=== PATIENT | female | born 1950 | race Caucasian/White ===

== ENCOUNTER 2021-04-29 20:57 | Inpatient (IN) ==
[2021-04-29 22:00] LABS: Basophils # (auto) 0.08 K/uL (0-0.2); Basophils % (auto) 0.7 %; Eosinophils # (auto) 0.06 K/uL (0-0.5); Eosinophils % (auto) 0.5 %; Hematocrit (blood only) 32.1 % (37-47); Hemoglobin 10.2 g/dL (12.0-16.0); Immature Granulocytes # (auto) 0.02 K/uL (0.00-0.02); Immature Granulocytes % (auto) 0.2 %; Lymphocytes # (auto) 2.22 K/uL (1.2-3.4); Lymphocytes % (auto) 18.9 %; Mean Corpuscular Hemoglobin 28.1 pg (25-34); Mean Corpuscular Hgb Conc 31.8 g/dL (32-36); Mean Corpuscular Volume 88.4 fL (80-100); Mean Platelet Volume 12.5 fL (7.4-10.4); Monocytes # (auto) 0.33 K/uL (0.11-0.59); Monocytes % (auto) 2.8 %; Neutrophils # (auto) 9.02 K/uL (1.4-6.5); Neutrophils % (auto) 76.9 %; Platelet Count 357 K/uL (130-400); RDW Coefficient of Variation 14.9 % (11.5-14.5); RDW Standard Deviation 48.2 fL (36.4-46.3); Red Blood Count 3.63 M/uL (4.2-5.4); White Blood Count 11.73 K/uL (4.8-10.8)
[2021-04-29] MEDS ORDERED: SODIUM CHLORIDE 0.9% 1000ML 1,000 ML IV SCH (22:00)
--- NOTE | 2021-04-29 22:00 | XRay Report ---
XR chest 1V portable INDICATION: MN ^SEPSIS . TECHNIQUE: Single frontal radiograph of the chest was obtained. Comparison: Comparison is made to chest one view 04/02/2021 FINDINGS: No lines and tubes are seen. Calcified aortic knob is seen. There is faint airspace opacity in the ri ght lower lung. Linear density in the left lower lung is favored to represent atelectasis. No evidenc e of pleural effusion or pneumothorax. IMPRESSION: Faint right lower lobe opacity may represent atelectasis, aspiration, and/or pneumonia. ACT 112: Negative or not required by law. Electronically signed by: Anderson Beckman M.D. 04/29/2021 9:58 PM
[2021-04-29 22:09] LABS: Albumin Level 2.4 gm/dl (3.4-5.0); BUN Creatinine Ratio 23.4 (10-20); Calcium 8.7 mg/dl (8.5-10.1); Est GFR (African American) 15.7 ml/min; Est GFR (Non-African American) 13.5 ml/min; Magnesium 1.9 mg/dl (1.8-2.4); Potassium 4.4 mmol/L (3.5-5.1)
[2021-04-29 22:14] LABS: Albumin Globulin Ratio 0.6 (0.9-2); Bilirubin,Total 0.3 mg/dl (0.2-1); Globulin 3.9 gm/dl (2.5-4.0); Total Protein 6.3 gm/dl (6.4-8.2); Troponin I 0.039 ng/ml (0-0.045)
[2021-04-29] MEDS ORDERED: SODIUM CHLORIDE 0.9% 1000ML 1,000 ML IV ONE (22:35)
[2021-04-29] MEDS ORDERED: PIPERACILLIN/TAZOBACTAM 4.5 GM/120 ML BAG IV ONE (22:36)
[2021-04-29] MEDS ORDERED: PIPERACILL/TAZOBAC CONSULT ACTIVE PRN (22:36)
--- NOTE | 2021-04-29 23:21 | Emergency Department Note ---
History of Present Illness General Chief complaint: Weakness Stated complaint: lethergy, COVID + Time Seen by Provider: 04/29/21 21:38 Source: patient, EMS, RN notes reviewed and old records reviewed Mode of arrival: ambulatory Limitations: no limitations History of Present Illness Maximum Pain Intensity: 3 This patient is 70-year-old female who apparently had Covid 3 weeks ago and according EMS was discharged a week ago although I do not see a record here. Her daughter has been a menagerie caretaker and she has not had anything to eat or drink for several days. She may be having diarrhea as well she feels dizzy no chest pain or shortness of breath no fever chills no cough no fall or trauma no dysuria hematuria no rash. She has had a stroke in the past but no new numbness or weakness. Home Medications Medication Instructions Recorded Confirmed Type amlodipine 2.5 mg tablet 2.5 mg PO BID 01/12/21 04/29/21 History atorvastatin 40 mg tablet 40 mg PO HS 01/12/21 04/29/21 History clopidogrel 75 mg tablet 75 mg PO QAM 01/12/21 04/29/21 History hydralazine 50 mg tablet 50 mg PO TID 01/12/21 04/29/21 History metformin 500 mg tablet,extended 1,000 mg PO QAM 01/12/21 04/29/21 History release 24 hr metoprolol tartrate 50 mg tablet 50 mg PO BID 01/12/21 04/29/21 History lisinopril 20 mg tablet 20 mg PO BID 02/11/21 04/29/21 History hydrocodone 5 mg-acetaminophen 325 1 tab PO Q4H PRN #14 tab 02/16/21 04/29/21 Rx mg tablet ondansetron HCl 8 mg tablet 8 mg PO Q8H PRN #10 tab 02/16/21 04/29/21 Rx gabapentin 100 mg capsule 100 mg PO TID 04/29/21 04/29/21 History Allergies Allergy/AdvReac Type Severity Reaction Status Date / Time No Known Allergies Allergy Mild Verified 04/29/21 23:21 Past Med/Surg History Medical History (Updated 04/30/21 @ 02:32 by Phillip Hoffman MD) Diabetes mellitus, type 2 NIDDM History of gastric ulcer HTN (hypertension) Hyperlipidemia On anticoagulant therapy on plavix daily Stroke 2015--d/t high bp/blood clot--no deficits--follows with PCP only, no neurologist--reason for plavix Surgical History History of gynecologic surgery "infection on uterus" per pt had to clean out History of tooth extraction all top teeth Hx of oral surgery Removal of Exposed Bone of Anterior Mandible from recent facial Infection; Removal of Teeth #,20, 23, 24, 25, 26, 27 and 28 primary closure from advancement flap to obtain closure over exposed bone. Dr. Carrasco 02/16/21 Family History Other Family history non-contributory No family history of adverse response to anesthesia Social History Smoking Status: Never smoker Tobacco Type: Cigarettes packs per day: 1; Years Smoked: 20; Second Hand Exposure: No; Hx Alcohol Use: No Hx Substance Use: No Preferred Language: Citizen Of [place] Communication Ability: Effective Visual Impairment: Partially Limited Lead Software Qa Engineer Required: No Beliefs That Will Affect Care: None marital status: Current Living Situation: Spouse and Family Current Living Situation Comment: Lives with and daughter current occupational status: retired How many Children do You have: 5 Feels Safe at Home: Yes during the past year weight has: remained stable Assistive Devices: Glasses Review of Systems A total of 10 systems reviewed and were otherwise negative Physical Exam Vital Signs Vital Signs - 24 hr 04/29/21 21:07 04/29/21 21:46 04/29/21 23:05 Temperature 36.5 C 36.7 C Temperature Source Oral Oral Pulse Rate 96 H 59 L Pulse Rate [Carotid] 66 Pulse Rhythm Regular Pulse Rhythm [Carotid] Regular Pulse Strength Normal Pulse Strength [Carotid] Normal Respiratory Rate 22 20 20 Respiratory Effort / Characteristics Non-Labored Non-Labored Non-Labored Respiratory Depth Normal Normal Respiratory Pattern Regular Blood Pressure 78/43 L Blood Pressure [Left Arm] 84/67 L Blood Pressure Mean 54 Blood Pressure Mean [Left Arm] 72 Blood Pressure Position Sitting Blood Pressure Position [Left Arm] Lying Pulse Oximetry 99 99 100 Oxygen Delivery Method Nasal Cannula Nasal Cannula Nasal Cannula Oxygen Flow Rate 2 2 2 Sepsis Recent Fever Within 48 Hours No Sepsis New/Unexplained Change in Mental Status No Sepsis Action Taken by Nursing No Action Required 04/30/21:41 04/30/21 01:50 04/30/21 02:15 Temperature Temperature Source Pulse Rate Pulse Rate [Carotid] 84 59 L 59 L Pulse Rhythm Pulse Rhythm [Carotid] Regular Regular Pulse Strength Pulse Strength [Carotid] Normal Normal Respiratory Rate 19 20 20 Respiratory Effort / Characteristics Non-Labored Spontaneous Respiratory Depth Normal Respiratory Pattern Blood Pressure Blood Pressure [Left Arm] 81/47 L 92/52 L 76/50 L Blood Pressure Mean Blood Pressure Mean [Left Arm] 58 65 58 Blood Pressure Position Blood Pressure Position [Left Arm] Lying Lying Pulse Oximetry 97 100 100 Oxygen Delivery Method Room Air Nasal Cannula Oxygen Flow Rate 2 Sepsis Recent Fever Within 48 Hours Sepsis New/Unexplained Change in Mental Status Sepsis Action Taken by Nursing General: Well developed well nourished female who appears in no acute distress, breathing comfortably on room air. Normal baseline speech for her HEENT: Normal cephalic atraumatic. Pupils are equal round and reactive to light. Sclera anicteric extraocular movements are intact. Oropharynx is pink with moist mucous membranes. No swelling of the mouth lips or tongue. Neck: Supple with a midline trachea. No meningeal signs or stiffness, no JVD or bruits. No Stridor. Chest: Clear to auscultation bilaterally. No wheezes or rhonchi. No increased work of breathing. Heart: Regular rate and rhythm without murmurs or gallops. Abdomen: Soft nontender, nondistended without rebound guarding or rigidity. Extremities: No cyanosis clubbing or edema. No calf tenderness or assymetry Spine/Back. Non tender to palpation. No CVA tenderness Skin: Good turgor without rashes. Neurologic exam: Cranial nerves two through 12 are intact. Motor and sensation are intact and symmetrical throughout. Course Administered Medications Discontinued Medications Sodium Chloride (Nss 1000ml) 1,000 mls @ 999 mls/hr IV .Q1H1M JOSE Stop: 04/29/21 23:00 Last Infusion: 04/30/21 01:38 Dose: 0 mls/hr Documented by: [id number] Admin: 04/29/21 21:58 Dose: 999 mls/hr Documented by: [id number] Sodium Chloride (Nss 1000ml) 1,000 mls @ 999 mls/hr IV .Q1H1M ONE Stop: 04/29/21 23:35 Last Infusion: 04/30/21 01:39 Dose: 0 mls/hr Documented by: [id number] Admin: 04/29/21 22:57 Dose: 999 mls/hr Documented by: [id number] Piperacillin Sod/Tazobactam Sod (Zosyn) 4.5 gm in 120 mls @ 240 mls/hr IV NOW ONE Stop: 04/29/21 23:05 Last Infusion: 04/30/21 01:39 Dose: 0 mls/hr Documented by: [id number] Admin: 04/29/21 22:57 Dose: 240 mls/hr Documented by: [id number] Medical Decision Making Differential Diagnosis Sepsis, dehydration, Covid, GI bleed, electrolyte or metabolic abnormality Medical Records Attestation: I reviewed the patient's medical records. Home Medications Current Medication List: was personally reviewed by me Laboratory Data Attestation: I reviewed the patient's lab results. Result diagrams: 04/29/21 21:18 04/29/21 21:18 Lab Results 04/29/21 04/29/21 04/29/21 Range/Units 21:18 21:18 21:18 WBC 11.73 H (4.8-10.8) K/uL RBC 3.63 L (4.2-5.4) M/uL Hgb 10.2 L (12.0-16.0) g/dL Hct 32.1 L (37-47) % MCV 88.4 (80-100) fL MCH 28.1 (25-34) pg MCHC 31.8 L (32-36) g/dL RDW Std Deviation 48.2 H (36.4-46.3) fL RDW Coeff of Mario 14.9 H (11.5-14.5) % Plt Count 357 (130-400) K/uL MPV 12.5 H (7.4-10.4) fL Immature Gran % (Auto) 0.2 % Neut % (Auto) 76.9 % Lymph % (Auto) 18.9 % Lake % (Auto) 2.8 % Eos % (Auto) 0.5 % Baso % (Auto) 0.7 % Neut # (Auto) 9.02 H (1.4-6.5) K/uL Lymph # (Auto) 2.22 (1.2-3.4) K/uL Lake # (Auto) 0.33 (0.11-0.59) K/uL Eos # (Auto) 0.06 (0-0.5) K/uL Baso # (Auto) 0.08 (0-0.2) K/uL Immature Gran # (Auto) 0.02 (0.00-0.02) K/uL PT Cancelled INR Cancelled APTT Cancelled PTT Ratio Cancelled Sodium 140 (136-145) mmol/L Potassium 4.4 (3.5-5.1) mmol/L Chloride 110 H (98-107) mmol/L Carbon Dioxide 19 L (21-32) mmol/L Anion Gap 10.0 (3-11) BUN 77 H (7-18) mg/dl Creatinine 3.29 H (0.6-1.2) mg/dl Est Cr Clr Drug Dosing 16.0 ml/min Est GFR ( Amer) 15.7 ml/min Est GFR (Non-Af Amer) 13.5 ml/min BUN/Creatinine Ratio 23.4 H (10-20) Glucose 138 H (70-99) mg/dl Lactate (0.4-2.0) mmol/L Calcium 8.7 (8.5-10.1) mg/dl Phosphorus (2.5-4.9) mg/dl Magnesium 1.9 (1.8-2.4) mg/dl Total Bilirubin 0.3 (0.2-1) mg/dl AST 17 (15-37) U/L ALT 21 (12-78) U/L Alkaline Phosphatase 55 (45-117) U/L Troponin I 0.039 (0-0.045) ng/ml Total Protein 6.3 L (6.4-8.2) gm/dl Albumin 2.4 L (3.4-5.0) gm/dl Globulin 3.9 (2.5-4.0) gm/dl Albumin/Globulin Ratio 0.6 L (0.9-2) Procalcitonin (0-0.5) ng/ml COVID-19 Eval Order SARS-CoV-2 (PCR) (Negative) 04/29/21 04/29/21 04/29/21 Range/Units 21:18 22:45 22:45 WBC (4.8-10.8) K/uL RBC (4.2-5.4) M/uL Hgb (12.0-16.0) g/dL Hct (37-47) % MCV (80-100) fL MCH (25-34) pg MCHC (32-36) g/dL RDW Std Deviation (36.4-46.3) fL RDW Coeff of Mario (11.5-14.5) % Plt Count (130-400) K/uL MPV (7.4-10.4) fL Immature Gran % (Auto) % Neut % (Auto) % Lymph % (Auto) % Lake % (Auto) % Eos % (Auto) % Baso % (Auto) % Neut # (Auto) (1.4-6.5) K/uL Lymph # (Auto) (1.2-3.4) K/uL Lake # (Auto) (0.11-0.59) K/uL Eos # (Auto) (0-0.5) K/uL Baso # (Auto) (0-0.2) K/uL Immature Gran # (Auto) (0.00-0.02) K/uL PT INR APTT PTT Ratio Sodium (136-145) mmol/L Potassium (3.5-5.1) mmol/L Chloride (98-107) mmol/L Carbon Dioxide (21-32) mmol/L Anion Gap (3-11) BUN (7-18) mg/dl Creatinine (0.6-1.2) mg/dl Est Cr Clr Drug Dosing ml/min Est GFR ( Amer) ml/min Est GFR (Non-Af Amer) ml/min BUN/Creatinine Ratio (10-20) Glucose (70-99) mg/dl Lactate (0.4-2.0) mmol/L Calcium (8.5-10.1) mg/dl Phosphorus (2.5-4.9) mg/dl Magnesium (1.8-2.4) mg/dl Total Bilirubin (0.2-1) mg/dl AST (15-37) U/L ALT (12-78) U/L Alkaline Phosphatase (45-117) U/L Troponin I (0-0.045) ng/ml Total Protein (6.4-8.2) gm/dl Albumin (3.4-5.0) gm/dl Globulin (2.5-4.0) gm/dl Albumin/Globulin Ratio (0.9-2) Procalcitonin < 0.05 (0-0.5) ng/ml COVID-19 Eval Order Covid19 at [facility] SARS-CoV-2 (PCR) POSITIVE A* (Negative) 04/29/21 04/29/21 04/29/21 Range/Units 23:06 23:06 23:06 WBC (4.8-10.8) K/uL RBC (4.2-5.4) M/uL Hgb (12.0-16.0) g/dL Hct (37-47) % MCV (80-100) fL MCH (25-34) pg MCHC (32-36) g/dL RDW Std Deviation (36.4-46.3) fL RDW Coeff of Mario (11.5-14.5) % Plt Count (130-400) K/uL MPV (7.4-10.4) fL Immature Gran % (Auto) % Neut % (Auto) % Lymph % (Auto) % Lake % (Auto) % Eos % (Auto) % Baso % (Auto) % Neut # (Auto) (1.4-6.5) K/uL Lymph # (Auto) (1.2-3.4) K/uL Lake # (Auto) (0.11-0.59) K/uL Eos # (Auto) (0-0.5) K/uL Baso # (Auto) (0-0.2) K/uL Immature Gran # (Auto) (0.00-0.02) K/uL PT 12.0 INR 1.2 H APTT 22.8 PTT Ratio 0.9 Sodium (136-145) mmol/L Potassium (3.5-5.1) mmol/L Chloride (98-107) mmol/L Carbon Dioxide (21-32) mmol/L Anion Gap (3-11) BUN (7-18) mg/dl Creatinine (0.6-1.2) mg/dl Est Cr Clr Drug Dosing ml/min Est GFR ( Amer) ml/min Est GFR (Non-Af Amer) ml/min BUN/Creatinine Ratio (10-20) Glucose (70-99) mg/dl Lactate 0.7 (0.4-2.0) mmol/L Calcium (8.5-10.1) mg/dl Phosphorus 3.8 (2.5-4.9) mg/dl Magnesium 1.8 (1.8-2.4) mg/dl Total Bilirubin (0.2-1) mg/dl AST (15-37) U/L ALT (12-78) U/L Alkaline Phosphatase (45-117) U/L Troponin I (0-0.045) ng/ml Total Protein (6.4-8.2) gm/dl Albumin (3.4-5.0) gm/dl Globulin (2.5-4.0) gm/dl Albumin/Globulin Ratio (0.9-2) Procalcitonin (0-0.5) ng/ml COVID-19 Eval Order SARS-CoV-2 (PCR) (Negative) Imaging Data Attestation: I personally reviewed and interpreted this imaging study as follows: My Impression: Chest x-rayno acute infiltrate, failure, pneumothorax seen Radiologist's Impression: Chest X-Ray 04/29/21 21:46 XR chest 1V portable INDICATION: MN ^SEPSIS . TECHNIQUE: Single frontal radiograph of the chest was obtained. Comparison: Comparison is made to chest one view 04/02/2021 FINDINGS: No lines and tubes are seen. Calcified aortic knob is seen. There is faint airspace opacity in the right lower lung. Linear density in the left lower lung is favored to represent atelectasis. No evidence of pleural effusion or pneumothorax. IMPRESSION: Faint right lower lobe opacity may represent atelectasis, aspiration, and/or pneumonia. ACT 112: Negative or not required by law. Electronically signed by: Anderson Beckman M.D. 04/29/2021 9:58 PM ECG Data Attestation: I personally reviewed and interpreted this ECG as follows: Indication: + weakness Rate (beats per minute): 84 Rhythm: + sinus with SA ECG Intervals/blocks: + Normal QRS, + Normal QT and + Normal PA ECG Jackson: + Normal ECG ST segments: + Normal ST segments ECG Findings: no PACs or no PVCs Comparison ECG Date: from [facility] Narrative This patient comes in as described above. The nurse came and got me because the blood pressure was 60 systolic she has been feeling weak and has had nothing to eat or drink for several days she may have had some diarrhea as well. She has had no fever she did have Covid recently as well by report from EMS. On my exam she does not appear to be in any significant distress although her blood pressure is low. She clinically looks dry. IV access was established and we gave her 1 L IV normal saline bolus initially her blood pressure came up in the 80s she had a second IV normal saline bolus. She has no fever. Her white count is mildly elevated. Procalcitonin is normal. Her BUN and creatinine are significantly elevated compared to baseline. I think she is likely dry. She did receive a second liter normal saline bolus. She she could also potentially have sepsis so was given Zosyn 4.5 g IV for broad-spectrum coverage. She is anemic but in her baseline range. Chest x-ray was clear. I do think she needs to be admitted for further evaluation hydration and [facility] Tenuous cardiac monitoring: Orders placed in EMR for continuous cardiac monitoring. Upon my interpretation she was noted to be in normal sinus rhythm with a rate of 80 Impression & Plan Acute dehydration, Weakness, Acute renal failure, Acute hypotension, Lab test positive for detection of COVID-19 virus Discharge Plan Visit Data Chief Complaint: Weakness Stated Complaint: lethergy, COVID + ED Provider: Phillip Hoffman Discharge Problem: Acute dehydration, Weakness, Acute renal failure, Acute hypotension, Lab test positive for detection of COVID-19 virus Forms Stand Alone Forms: My [facility] Prescriptions Prescriptions: No Action hydrocodone-acetaminophen 5-325 mg tablet 1 tab PO Q4H PRN (Reason: pain) Qty: 14 RF: 0 ondansetron HCl 8 mg tablet 8 mg PO Q8H PRN (Reason: nausea and vomiting) Qty: 10 RF: 0 atorvastatin 40 mg tablet 40 mg PO HS RF: 0 amlodipine 2.5 mg tablet 2.5 mg PO BID RF: 0 clopidogrel 75 mg tablet 75 mg PO QAM RF: 0 metoprolol tartrate 50 mg tablet 50 mg PO BID RF: 0 hydralazine 50 mg tablet 50 mg PO TID RF: 0 metformin 500 mg tablet extended release 24 hr 1,000 mg PO QAM RF: 0 gabapentin 100 mg capsule 100 mg PO TID RF: 0 lisinopril 20 mg Tablet 20 mg PO BID RF: 0 Referrals Referrals: Dory Ray DO [Primary Care Provider] -
[2021-04-29 23:30] LABS: INR 1.2 (0.9-1.1); Partial Thromboplastin Ratio 0.9; Partial Thromboplastin Time 22.8 Seconds (21.0-31.0)
--- NOTE | 2021-04-29 23:39 | History & Physical Report ---
Date of Service April 29, 2021 Assessment & Plan (1) Hypotension due to hypovolemia: Plan: IV fluids given in the ER with blood pressure now around 100 systolic. No pressors required, likely 2/2 hypovolemia from dehydration. Poor PO intake over several days with diarrhea and multiple antihypertensives. Cont resuscitation efforts (2) Acute renal failure: Plan: 2/2 above, trend BMP after IVF. (3) COVID-19: Plan: diagnosed with this about one month ago. Currently not coughing or exhibiting symptoms. Should not need isolation at this time. (4) Diabetes mellitus, type 2: Plan: Hold home oral meds, utilize basal bolus insulin while hospitalized. (5) H/O: stroke: Plan: Continue Plavix and statin for secondary stroke prophylaxis. (6) DVT prophylaxis: Plan: Lovenox Full code Disposition-to med telemetry. PT/OT evaluations recommended after prolonged illness and recent hospitalization with Covid. Sherry Corbin DO [facility] Hospitalist History of Present Illness Chief Complaint: weakness Primary Care Provider: Dory Ray DO The patient is a 70-year-old female who recently was positive for COVID-19 on 04/02 who subsequently developed diarrhea and presents now with weakness. Work-up reveals acute renal failure and patient recently had some ongoing diarrhea. She went to an outside hospital and was discharged approximately 1 week ago. Poor p.o. intake for the last several days. Denies dizziness, chest pain, shortness of breath, fevers, chills. She reports her daughter brought her care out of concern, but she is wanting to go home. She is on multiple blood pressure agents at home. Allergies Allergy/AdvReac Type Severity Reaction Status Date / Time No Known Allergies Allergy Mild Verified 04/29/21 23:21 Home Medications Medication Instructions Recorded Confirmed Type amlodipine 2.5 mg tablet 2.5 mg PO BID 01/12/21 04/30/21 History atorvastatin 40 mg tablet 40 mg PO HS 01/12/21 04/30/21 History clopidogrel 75 mg tablet 75 mg PO QAM 01/12/21 04/30/21 History hydralazine 50 mg tablet 50 mg PO TID 01/12/21 04/30/21 History metformin 500 mg tablet,extended 1,000 mg PO QAM 01/12/21 04/30/21 History release 24 hr metoprolol tartrate 50 mg tablet 50 mg PO BID 01/12/21 04/30/21 History lisinopril 20 mg tablet 20 mg PO BID 02/11/21 04/30/21 History hydrocodone 5 mg-acetaminophen 325 1 tab PO Q4H PRN #14 tab 02/16/21 04/30/21 Rx mg tablet ondansetron HCl 8 mg tablet 8 mg PO Q8H PRN #10 tab 02/16/21 04/30/21 Rx gabapentin 100 mg capsule 100 mg PO TID 04/29/21 04/30/21 History Past Med/Surg History Medical History Diabetes mellitus, type 2 NIDDM History of gastric ulcer HTN (hypertension) Hyperlipidemia On anticoagulant therapy on plavix daily Stroke 2015--d/t high bp/blood clot--no deficits--follows with PCP only, no neurologist--reason for plavix Surgical History History of gynecologic surgery "infection on uterus" per pt had to clean out History of tooth extraction all top teeth Hx of oral surgery Removal of Exposed Bone of Anterior Mandible from recent facial Infection; Removal of Teeth #,20, 23, 24, 25, 26, 27 and 28 primary closure from advancement flap to obtain closure over exposed bone. Dr. Carrasco 02/16/21 Family History Other Family history non-contributory No family history of adverse response to anesthesia Social History Smoking Status: Never smoker Tobacco Type: Cigarettes packs per day: 1; Years Smoked: 20; Second Hand Exposure: No; Hx Alcohol Use: No Hx Substance Use: No Preferred Language: Georgian Communication Ability: Effective Visual Impairment: Partially Limited Director Of Quality Required: No Beliefs That Will Affect Care: None marital status: Current Living Situation: Spouse and Family Current Living Situation Comment: Lives with and daughter current occupational status: retired How many Children do You have: 5 Feels Safe at Home: Yes during the past year weight has: remained stable Assistive Devices: Glasses Review of Systems Review of Systems: At least ten systems were reviewed and negative except as indicated in HPI above. Physical Exam Physical Exam: CONSTITUTIONAL: WNWD, vitals as above, generally well- appearing EYES: normal conjunctivae, no scleral icterus ENT: external ear and nose normal, edentulous, MMM NECK: trachea midline RESPIRATORY: clear to auscultation bilaterally, no crackles, rales or wheezes, normal respiratory effort CARDIOVASCULAR: regular rate and rhythm, S1 and 2 heard without murmurs, gallops or rubs, no JVD, no peripheral edema GASTROINTESTINAL: soft, nontender, ND, no guarding MUSCULOSKELETAL: generalized weakness, head is normocephalic and atraumatic SKIN: warm and dry NEUROLOGIC: CN 2-12 grossly intact, no sensory deficit, normal cognition, normal speech, no tremor PSYCHIATRIC: alert cooperative and oriented to person, place and time. Results & Data Results & Data ([facility]) Vital Signs (Past 12 Hours) Vital Signs Temp Pulse Pulse Resp BP BP Pulse Ox 04/29/21 23:05 66 20 84/67 L 100 04/29/21 21:46 36.7 C 59 L 20 99 04/29/21 21:07 36.5 C 96 H 22 78/43 L 99 Laboratory Results Short CBC 04/29/21 Range/Units 21:18 WBC 11.73 H (4.8-10.8) K/uL Hgb 10.2 L (12.0-16.0) g/dL Hct 32.1 L (37-47) % Plt Count 357 (130-400) K/uL BMP 04/29/21 21:18 Sodium 140 Potassium 4.4 Chloride 110 H Carbon Dioxide 19 L BUN 77 H Creatinine 3.29 H Glucose 138 H Calcium 8.7 Cardiac Enzymes 04/29/21 Range/Units 21:18 Troponin I 0.039 (0-0.045) ng/ml Liver Function 04/29/21 Range/Units 21:18 Total Bilirubin 0.3 (0.2-1) mg/dl AST 17 (15-37) U/L ALT 21 (12-78) U/L Alkaline Phosphatase 55 (45-117) U/L Albumin 2.4 L (3.4-5.0) gm/dl Diagnostic Findings Chest X-Ray 04/29/21 21:46 XR chest 1V portable INDICATION: MN ^SEPSIS . TECHNIQUE: Single frontal radiograph of the chest was obtained. Comparison: Comparison is made to chest one view 04/02/2021 FINDINGS: No lines and tubes are seen. Calcified aortic knob is seen. There is faint airspace opacity in the right lower lung. Linear density in the left lower lung is favored to represent atelectasis. No evidence of pleural effusion or pneumothorax. IMPRESSION: Faint right lower lobe opacity may represent atelectasis, aspiration, and/or pneumonia. ACT 112: Negative or not required by law. Electronically signed by: Anderson Beckman M.D. 04/29/2021 9:58 PM Code Status & VTE Plan VTE Prophylaxis Plan VTE Prophylaxis will be ordered: Yes
[2021-04-30 00:06] LABS: Magnesium 1.8 mg/dl (1.8-2.4); Phosphorus 3.8 mg/dl (2.5-4.9)
[2021-04-30] MEDS ORDERED: SODIUM CHLORIDE 0.9% 1000ML 500 ML IV ONE (03:54)
[2021-04-30] MEDS ORDERED: SODIUM CHLORIDE 0.9% 1000ML 1,000 ML IV SCH ×2 (05:15→08:40)
[2021-04-30] MEDS ORDERED: CONSULT PHARMACY STA (06:43)
[2021-04-30] MEDS ORDERED: ACETAMINOPHEN 325 MG TAB PO PRN (08:40)
[2021-04-30] MEDS ORDERED: ONDANSETRON INJ 2 MG/ML 2 ML VIAL IV PRN (08:40)
[2021-04-30] MEDS ORDERED: DEXTROSE 50% 50 ML SYRINGE IV PRN (08:40)
[2021-04-30] MEDS ORDERED: GLUCAGON FOR INJ 1 MG VIAL SQ PRN (08:40)
[2021-04-30] MEDS ORDERED: GLUCOSE 40% GEL 15 GM TUBE PO PRN (08:40)
[2021-04-30] MEDS ORDERED: GLUCOSE 10 TABS/TUBE PO PRN (08:40)
[2021-04-30] MEDS ORDERED: CARBOHYDRATES FOR HYPOGLYCEMIA PO PRN (08:40)
[2021-04-30] MEDS ORDERED: GABAPENTIN 100 MG CAP PO SCH (09:00)
[2021-04-30] MEDS: CLOPIDOGREL BISULFATE 75 MG TAB PO SCH (10:04)
[2021-04-30] MEDS: INSULIN ASPART 100 UNITS/ML 3 ML PEN SC SCH ×4 (10:04→20:02)
--- NOTE | 2021-04-30 10:06 | Nephrology Consultation ---
Date of Consultation April 30, 2021 Assessment & Plan (1) Acute renal failure: stage 3 MOHAN with presenting creatinine 3.3 and baseline creatinine 0.9; already in MOHAN one month back when she presented w/ covid. prerenal versus ischemic ATN -cont to hold bp meds and metformin ->>>lowered gabapentin to 100 mg daily given her renal function -await urine specimen >>cloudy yellow urine 1014 trace protein, blood, ketones; 3+ LE, >30 epithel cells >> inflamed but not overtly infected -daily bmp -no indication for renal imaging yet unless she does not improve (2) Hypotension due to hypovolemia: presumptive based on hx >> -changed FR to 1/2 NS w/ 75 mEq/L sodium bicarb same rate -cont to hold bp meds >>low threshold for TTE if improvement in hemodynamics; consider RUQ u/s or other liver evaluation History of Present Illness Reason for Consultation: MHOAN Requesting Physician: Dr Corbin Attending Physician: Sherry Corbin, DO History of Present Illness 70 y/o F whom I'm asked to see for MOHAN was admitted overnight for management of same and hypovolemia. PMH includes HTN on multiple agents, DM on metformin, hx of stroke; covid 19 diagnosed about one month back. in the wake of the virus she had diarrhea after being seen in ER here for same in early March. She had ongoing diarrhea and poor po intake for several days prior to presenting here yesterday. She states that diarrhea has since resolved, though still w/ minimal appetite. Denies sob, cough, new/worrisome voiding sx, edema. endorses GI upset w/ n/v. Her baseline creatinine is 0.9 x years. She was 1.2 at early March eval here and 3.3 on presentation yesterday. Her sbp have been in the 90s. she is currently receiving NS at 150 mL /hr. Her OP anti hypertensives and metformin have been held; her OP gabapentin was continued. Allergies Allergy/AdvReac Type Severity Reaction Status Date / Time No Known Allergies Allergy Mild Verified 04/29/21 23:21 Home Medications Medication Instructions Recorded Confirmed Type amlodipine 2.5 mg tablet 2.5 mg PO BID 01/12/21 04/30/21 History atorvastatin 40 mg tablet 40 mg PO HS 01/12/21 04/30/21 History clopidogrel 75 mg tablet 75 mg PO QAM 01/12/21 04/30/21 History hydralazine 50 mg tablet 50 mg PO TID 01/12/21 04/30/21 History metformin 500 mg tablet,extended 1,000 mg PO QAM 01/12/21 04/30/21 History release 24 hr metoprolol tartrate 50 mg tablet 50 mg PO BID 01/12/21 04/30/21 History lisinopril 20 mg tablet 20 mg PO BID 02/11/21 04/30/21 History hydrocodone 5 mg-acetaminophen 325 1 tab PO Q4H PRN #14 tab 02/16/21 04/30/21 Rx mg tablet ondansetron HCl 8 mg tablet 8 mg PO Q8H PRN #10 tab 02/16/21 04/30/21 Rx gabapentin 100 mg capsule 100 mg PO TID 04/29/21 04/30/21 History Patient History Medical History Diabetes mellitus, type 2 NIDDM History of gastric ulcer HTN (hypertension) Hyperlipidemia On anticoagulant therapy on plavix daily Stroke 2015--d/t high bp/blood clot--no deficits--follows with PCP only, no neurologist--reason for plavix Surgical History History of gynecologic surgery "infection on uterus" per pt had to clean out History of tooth extraction all top teeth Hx of oral surgery Removal of Exposed Bone of Anterior Mandible from recent facial Infection; Removal of Teeth #,20, 23, 24, 25, 26, 27 and 28 primary closure from advancement flap to obtain closure over exposed bone. Dr. 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 Beliefs That Will Affect Care: None marital status: Current Living Situation: Spouse Current Living Situation Comment: Lives with and daughter current occupational status: retired How many Children do You have: 5 Other Information That Helps Us Care for You: No Feels Safe at Home: Yes Safety Concerns: Feels Safe At This Time during the past year weight has: remained stable Assistive Devices: None Review of Systems Review of Systems: All systems reviewed & are unremarkable except as noted in HPI & below Physical Exam Constitutional: well developed, well nourished and cooperative; no acute distress (but very tired) Eyes: EOM intact bilaterally ENMT: Ears: no external ear abnormality Nose: no external nose abnormality Mouth: + dry oral mucous membranes Neck: no nuchal rigidity Respiratory: normal respiratory effort Auscultation: + diminished lung sounds Cardiovascular: Rate/Rhythm: regular rate and regular rhythm Heart Sounds: normal S1 and normal S2 Extremities: no edema Gastrointestinal (Abdomen): Inspection/Auscultation: normal bowel sounds Percussion/Palpation: abdomen soft; abdomen nontender Musculoskeletal: Extremities: strength 5/5 throughout Skin: no rashes, warm and dry Neurologic: flores, fluent speech, no tremor Psychiatric: Orientation: oriented x 3 Results & Data ([facility]) Vital Signs (Past 12 Hours) Vital Signs Temp Pulse Pulse Resp BP BP Pulse Ox 04/30/21 09:50 70 04/30/21 09:00 95 04/30/21 08:42 36 C L 94 H 18 91/57 L 95 04/30/21 07:32 68 17 129/80 99 04/30/21 07:00 57 L 12 101/56 L 100 04/30/21 06:43 61 17 111/55 L 100 04/30/21 06:00 57 L 12 97/54 L 100 04/30/21 05:43 63 16 100/55 L 99 04/30/21 05:00 59 L 24 89/55 L 97 04/30/21 04:47 62 19 96/51 L 100 04/30/21 04:15 62 40 H 113/54 L 04/30/21 02:15 59 L 20 76/50 L 100 04/30/21 01:50 59 L 20 92/52 L 100 10/01/21 01:45 67 17 92/52 L 100 04/30/21 01:41 84 19 81/47 L 97 04/30/21 01:00 59 L 21 89/47 L 100 04/30/21 00:59 58 L 29 H 94/51 L 100 04/29/21 23:05 66 20 84/67 L 100 Laboratory Results 04/29/21 21:18 04/29/21 21:18 UA not yet collected Diagnostic Findings cxr Faint right lower lobe opacity may represent atelectasis, aspiration, and/or pneumonia. (1) Acute renal failure Acute renal failure type: unspecified Qualified Code(s): N17.9 - Acute kidney failure, unspecified
[2021-04-30] MEDS: PIPERACILLIN/TAZOBACTAM 3.375 GM in DEXTROSE 5% 100 ML IV SCH ×2 (10:09→21:05)
[2021-04-30] MEDS: INSULIN GLARGINE SOLOSTAR 100 UNITS/ML 3 ML PEN SC SCH ×2 (10:12→20:02)
[2021-04-30] MEDS: SODIUM BICARBONATE 8.4% 75 MEQ in SODIUM CHLORIDE 0.45 % 1,000 ML IV SCH ×2 (11:00→19:16)
[2021-04-30 11:26] LABS: Appearance Urine Cloudy (Clear); Bacteria Urine Automated Negative (Negative); Bilirubin Urine Negative (Negative); Blood Urine Trace (Negative); Color Urine Yellow; Epithelial Cell Urine Auto >30 /lpf (0-5); Glucose Urine UA Negative (Negative); Ketones Urine Trace (Negative); Leukocyte Esterase Urine 3+ (Negative); Nitrite Urine Negative (Negative); Protein Urine Trace (Negative); Specific Gravity Urine 1.014 (1.000-1.030); Urobilinogen Urine Negative (Negative); WBC Urine Automated >30 /hpf (0-5)
[2021-04-30 11:41] LABS: RBC Urine Automated 0-4 /hpf (0-4)
[2021-04-30 17:09] LABS: BUN Creatinine Ratio 33.9 (10-20); Calcium 7.6 mg/dl (8.5-10.1); Est GFR (African American) 44.4 ml/min; Est GFR (Non-African American) 38.3 ml/min; Potassium 4.1 mmol/L (3.5-5.1)
--- NOTE | 2021-04-30 19:11 | Hospitalist Progress Note ---
Date of Service April 30, 2021 Assessment & Plan (1) Hypotension due to hypovolemia: Plan: likely 2/2 hypovolemia from dehydration. Poor PO intake over several days with diarrhea and multiple antihypertensives BP improved after 2 L of NSS boluses continue Bicarb drip C diff and stool culture ordered On Zosyn IV (2) Acute renal failure: Plan: as above Nephrology consulted (3) COVID-19: Plan: diagnosed with this about one month ago. Currently not coughing or exhibiting symptoms. Should not need isolation at this time. (4) Diabetes mellitus, type 2: Plan: Hold home oral meds, utilize basal bolus insulin while hospitalized. (5) H/O: stroke: Plan: Continue Plavix and statin for secondary stroke prophylaxis. (6) DVT prophylaxis: Plan: Lovenox Full code Disposition-to med telemetry. PT/OT evaluations recommended after prolonged illness and recent hospitalization with Covid. Sherry Corbin DO [facility] Hospitalist Admission and Anticipated Discharge Date Admission Date: April 30, 2021 Subjective ff up for acute renal failure, etc seen resting in bed, comfortable tired states she feels ok no diarrhea since admission has mild abdominal discomfort no nausea no chest pain, dyspnea, palpitations, dizziness no other symptoms Review of Systems Review of Systems: all noted and negative except for above Physical Exam Physical Exam: General- oriented x 3, not in distress, speaks in sentences with no effort or accessory muscle use Head- atraumatic Eyes- PERRL, EOMI, anicteric ENT- oropharynx clear dry oral mucosa Neck- supple, no JVD, no adenopathy, no thyromegaly; carotids +2/2, no bruits a ppreciated Lungs- clear to auscultation bilaterally, no rales/wheezes Heart- normal rate, regular rhythm; no murmur, no gallop, no rub appreciated Abdomen- normal bowel sounds, nondistended, soft, nontender, no masses or hepatosplenomegaly Extremities- no pretibial edema, no calf tenderness; peripheral pulses intact Neuro- alert, oriented x 3; CN 2-12 grossly intact; motor 5/5 bilaterally;se nsation 100% on all extremities; no other gross focal neurologic deficits Skin- warm & dry Results & Data Results & Data ([facility]) Vital Signs (Past 12 Hours) Vital Signs Temp Pulse Pulse Resp BP BP Pulse Ox 10/01/21 15:54 36.4 C L 70 16 95/62 L 97 04/30/21 15:09 60 04/30/21 14:48 18 04/30/21 13:30 63 04/30/21 12:13 18 98 04/30/21 10:30 94 04/30/21 10:00 94 04/30/21 09:50 70 04/30/21 09:00 95 04/30/21 08:42 36 C L 94 H 18 91/57 L 95 04/30/21 07:32 68 17 129/80 99 all noted and reviewed including below (1) Acute renal failure Acute renal failure type: unspecified Qualified Code(s): N17.9 - Acute kidney failure, unspecified
[2021-04-30] MEDS: ATORVASTATIN 40 MG TAB PO SCH (20:21)
--- NOTE | 2021-04-30 22:23 | Electrocardiogram Report ---
Test Reason : Blood Pressure : / mmHG Vent. Rate : 068 BPM Atrial Rate : 068 BPM P-R Int : 136 ms QRS Dur : 070 ms QT Int : 386 ms P-R-T Axes : 052 -02 052 degrees QTc Int : 411 ms Sinus rhythm Otherwise normal ECG When compared with ECG of 02-APR-2021 10:56, No significant change Confirmed by Edgar Malik ([id number]) on 04/30/2021 10:23:28 PM Referred By: REFERRED SELF Confirmed By:Edgar Malik
[2021-05-01] MEDS: SODIUM BICARBONATE 8.4% 75 MEQ in SODIUM CHLORIDE 0.45 % 1,000 ML IV SCH ×3 (02:30→15:23)
[2021-05-01 07:56] LABS: Hematocrit (blood only) 24.1 % (37-47); Hemoglobin 7.7 g/dL (12.0-16.0); Mean Corpuscular Hemoglobin 28.1 pg (25-34); Platelet Count 204 K/uL (130-400); RDW Coefficient of Variation 15.3 % (11.5-14.5); RDW Standard Deviation 48.5 fL (36.4-46.3); Red Blood Count 2.74 M/uL (4.2-5.4); White Blood Count 6.96 K/uL (4.8-10.8)
[2021-05-01 07:59] LABS: Estimated Average Glucose 143 mg/dl; Hemoglobin A1C 6.6 % (4.5-5.6)
[2021-05-01 08:25] LABS: Calcium 7.9 mg/dl (8.5-10.1); Est GFR (African American) 69.4 ml/min; Est GFR (Non-African American) 59.9 ml/min; Magnesium 1.6 mg/dl (1.8-2.4); Phosphorus 1.7 mg/dl (2.5-4.9); Potassium 3.7 mmol/L (3.5-5.1)
[2021-05-01] MEDS: CLOPIDOGREL BISULFATE 75 MG TAB PO SCH (08:29)
[2021-05-01] MEDS: INSULIN ASPART 100 UNITS/ML 3 ML PEN SC SCH ×4 (08:29→20:56)
[2021-05-01] MEDS: INSULIN GLARGINE SOLOSTAR 100 UNITS/ML 3 ML PEN SC SCH ×2 (08:30→20:57)
[2021-05-01] MEDS: PIPERACILLIN/TAZOBACTAM 3.375 GM in DEXTROSE 5% 100 ML IV SCH ×2 (08:35→16:04)
[2021-05-01] MEDS ORDERED: GABAPENTIN 100 MG CAP PO SCH (09:00)
[2021-05-01] MEDS: MAGNESIUM SULFATE / D5W 1 GM/100 ML BAG IV SCH ×2 (09:34→11:35)
[2021-05-01] MEDS: POT PHOSPHATE MONOBASIC W/ SOD TAB PO SCH ×4 (09:35→20:57)
--- NOTE | 2021-05-01 10:56 | Hospitalist Progress Note ---
Date of Service May 01, 2021 Assessment & Plan (1) Hypotension due to hypovolemia: Plan: likely 2/2 hypovolemia from dehydration. Poor PO intake over several days with diarrhea and multiple antihypertensives BP improved after 2 L of NSS boluses BP remains stable Will DC IV fluids today since creatinine is back to baseline C diff and stool culture ordered On Zosyn IV day #2 (2) Acute renal failure: Plan: Creatinine improved from 3 now 0.9 DC IV fluids as above Nephrology consulted Hypophosphatemia and hypomagnesemia Replacement in progress Anemia Hemoglobin decreased from time to 7.5 Continue to monitor every 6 hours Check anemia panel Check for occult blood Protonix 40 milligrams IV twice daily for now Monitor closely (3) COVID-19: Plan: diagnosed with this about one month ago. Currently not coughing or exhibiting symptoms. Should not need isolation at this time. (4) Diabetes mellitus, type 2: Plan: Hold home oral meds, utilize basal bolus insulin while hospitalized. A1c 6.6 (5) H/O: stroke: Plan: Continue Plavix and statin for secondary stroke prophylaxis. (6) DVT prophylaxis: Plan: Hold Lovenox for anemia SCDs Full code Disposition-to med telemetry. PT/OT evaluations recommended after prolonged illness and recent hospitalization with Covid. Admission and Anticipated Discharge Date Admission Date: April 30, 2021 Subjective ff up for acute renal failure secondary to dehydration, diarrhea, etc. Seen sitting up in bed, comfortable, not in distress States she feels improved today compared to yesterday Had 1 bowel movement so far since admission Abdominal discomfort improving No fevers or chills, headache, dizziness, chest pain, shortness of breath, cough, nausea vomiting No other symptoms Review of Systems Review of Systems: all noted and negative except for above Physical Exam Physical Exam: General- oriented x 3, not in distress, speaks in sentences with no effort or accessory muscle use Eyes- anicteric Neck- no JVD Lungs- clear breath sounds bilaterally, no rales/wheezes Heart- normal rate, regular rhythm; no murmurs Abdomen- normal bowel sounds, nondistended, soft, nontender Extremities- no pretibial edema, no calf tenderness Neuro- alert, oriented x 3; no gross focal neurologic deficits Skin- warm & dry Results & Data Results & Data ([facility]) Vital Signs (Past 12 Hours) Vital Signs Temp Pulse Pulse Resp BP Pulse Ox 05/01/21 07:47 89 05/01/21 07:02 36.5 C 82 18 100/59 L 94 05/01/21 02:54 36.9 C 80 16 104/62 95 05/01/21 01:32 63 04/30/21 23:32 36.5 C 85 18 95/56 L 94 all noted and reviewed including below (1) Acute renal failure Acute renal failure type: unspecified Qualified Code(s): N17.9 - Acute kidney failure, unspecified
[2021-05-01 13:08] LABS: Hematocrit (blood only) 23.4 % (37-47); Hemoglobin 7.5 g/dL (12.0-16.0)
[2021-05-01] MEDS: PANTOprazole 40 MG in SYRINGE 0 ML IV SCH ×2 (16:04→20:58)
--- NOTE | 2021-05-01 16:06 | Nephrology Progress Note ---
Date of Service May 01, 2021 Assessment & Plan (1) Acute renal failure: Plan: now resolved stage 3 MOHAN with presenting creatinine 3.3 and baseline creatinine 0.9; already in MOHAN one month back when she presented w/ covid. prerenal MOHAN ; off of all IVF now -cont to hold bp meds and metformin ->>>lowered gabapentin to 100 mg daily given renal function > increased back to bid now (was on tid at admission) -await urine specimen >>cloudy yellow urine 1014 trace protein, blood, ketones; 3+ LE, >30 epithel cells >> inflamed but not overtly infected -daily bmp -no indication for renal imaging yet unless she does not improve Will sign off ; no renal f[facility] creatinine; do recommend repeat bmp 1 wk after d/c (2) Hypotension due to hypovolemia: Plan: resolved w/ hydration -cont to hold bp meds Admission and Anticipated Discharge Date Admission Date: April 30, 2021 Subjective feels improved; still no diarrhea per her report; no n/v; on RA Review of Systems Review of Systems: All systems reviewed & are unremarkable except as noted in Subjective Physical Exam Constitutional: well developed, well nourished and cooperative; no acute distress (but very tired) Eyes: EOM intact bilaterally ENMT: Ears: no external ear abnormality Nose: no external nose abnormality Mouth: + dry oral mucous membranes Neck: no nuchal rigidity Respiratory: normal respiratory effort Auscultation: + diminished lung sounds Cardiovascular: Rate/Rhythm: regular rate and regular rhythm Heart Sounds: normal S1 and normal S2 Extremities: no edema Gastrointestinal (Abdomen): Inspection/Auscultation: normal bowel sounds Percussion/Palpation: abdomen soft; abdomen nontender Musculoskeletal: Extremities: strength 5/5 throughout Skin: no rashes, warm and dry Neurologic: really tired; soem genermalized weakness Psychiatric: Orientation: oriented x 3 Results & Data ([facility]) Vital Signs (Past 12 Hours) Vital Signs Temp Pulse Pulse Resp BP Pulse Ox 05/01/21 15:35 67 05/01/21 15:31 36.9 C 96 H 18 126/74 94 05/01/21 11:21 36.7 C 77 18 121/75 97 05/01/21 07:47 89 05/01/21 07:02 36.5 C 82 18 100/59 L 94 Laboratory Results 05/01/21 12:53 05/01/21 07:10 (1) Acute renal failure Acute renal failure type: unspecified Qualified Code(s): N17.9 - Acute kidney failure, unspecified
[2021-05-01 16:51] LABS: BUN Creatinine Ratio 26.4 (10-20); Calcium 7.7 mg/dl (8.5-10.1); Creatinine Clr Calc Pharmacy 62.1 ml/min; Est GFR (African American) 80.5 ml/min; Est GFR (Non-African American) 69.4 ml/min; Potassium 3.3 mmol/L (3.5-5.1)
[2021-05-01 19:14] LABS: Hematocrit (blood only) 21.8 % (37-47); Hemoglobin 7.1 g/dL (12.0-16.0)
[2021-05-01] MEDS: GABAPENTIN 100 MG CAP PO SCH (20:55)
[2021-05-01] MEDS: ATORVASTATIN 40 MG TAB PO SCH (20:58)
[2021-05-02 00:45] LABS: Hemoglobin 6.6 g/dL (12.0-16.0)
[2021-05-02] MEDS: PIPERACILLIN/TAZOBACTAM 3.375 GM in DEXTROSE 5% 100 ML IV SCH ×3 (01:14→20:53)
[2021-05-02] MEDS ORDERED: SODIUM CHLORIDE 0.9% 250 ML IV PRN ×2 (01:15→07:43)
[2021-05-02] MEDS ORDERED: PANTOPRAZOLE BOLUS/DRIP 1 EA IV STA (07:46)
[2021-05-02] MEDS ORDERED: PANTOprazole 80 MG in DEXTROSE 5% 100 ML IV ONE (08:00)
[2021-05-02] MEDS: INSULIN ASPART 100 UNITS/ML 3 ML PEN SC SCH ×3 (08:01→17:57)
[2021-05-02] MEDS: PANTOprazole 40 MG in DEXTROSE 5% 100 ML IV SCH ×4 (08:07→22:36)
[2021-05-02] MEDS: POT PHOSPHATE MONOBASIC W/ SOD TAB PO SCH ×4 (08:21→21:01)
[2021-05-02] MEDS: INSULIN GLARGINE SOLOSTAR 100 UNITS/ML 3 ML PEN SC SCH (08:21)
[2021-05-02] MEDS: GABAPENTIN 100 MG CAP PO SCH ×2 (08:21→21:01)
--- NOTE | 2021-05-02 10:12 | Hospitalist Progress Note ---
Date of Service May 02, 2021 Assessment & Plan (1) Hypotension due to hypovolemia: Plan: likely 2/2 hypovolemia from dehydration. Poor PO intake over several days with diarrhea and multiple antihypertensives BP improved after 2 L of NSS boluses BP remains stable C diff and stool culture ordered On Zosyn IV day #3 (2) Acute blood loss anemia: Plan: likely secondary to Acute GI Bleed (+) melena at home per patient's daughter on Plavix no EGD/Colonoscopy on record Hg dropped from 10 to 6.6 anemia panel pending 2 units pRBC ordered- 2nd unit in progress repeat Hg 12noon Protonix drip NPO GI consulted (3) Acute renal failure: Plan: Creatinine improved from 3 now 0.9 DC IV fluids as above Nephrology consulted Hypophosphatemia and hypomagnesemia Replacement in progress (4) COVID-19: Plan: diagnosed with this about one month ago. Currently not coughing or exhibiting symptoms. Should not need isolation at this time. (5) Diabetes mellitus, type 2: Plan: Hold home oral meds, utilize basal bolus insulin while hospitalized. A1c 6.6 (6) H/O: stroke: Plan: Continue Plavix and statin for secondary stroke prophylaxis. (7) DVT prophylaxis: Plan: Hold Lovenox for anemia SCDs Full code Disposition-pending lives with daughter at home PT/OT eval Admission and Anticipated Discharge Date Admission Date: April 30, 2021 Subjective ff up for diarrhea, GI bleed, etc seen resting in bed, comfortable, sitting up inquiring "when am i going home?" explained that it will be a few days due to her current medical condition- explained this to patient, states "i am going to call my daughter" denies abdominal pain had some diarrhea yesterday per RN no nausea/vomiting denies chest pain, dyspnea, palpitations, dizziness, headache no other symptoms Review of Systems Review of Systems: all noted and negative except for above Physical Exam Physical Exam: General- oriented x 2, not in distress, speaks in sentences with no effort or accessory muscle use Eyes- anicteric Neck- no JVD Lungs- clear breath sounds bilaterally,no wheezing, no crackles Heart- normal rate, regular rhythm; no murmurs Abdomen- normal bowel sounds, nondistended, soft, nontender Extremities- no pretibial edema, no calf tenderness Neuro- alert, oriented x 3; no gross focal neurologic deficits Skin- warm & dry Results & Data Results & Data ([facility]) Vital Signs (Past 12 Hours) Vital Signs Temp Pulse Pulse Resp BP BP Pulse Ox 05/02/21 08:38 36.7 C 100 H 16 160/81 H 96 05/02/21 08:26 37.4 C 91 H 138/75 96 05/02/21 07:53 36.9 C 86 18 133/76 96 05/02/21 07:46 85 05/02/21 07:35 37 C 94 H 16 149/81 H 05/02/21 07:00 36.9 C 90 18 130/77 96 05/02/21 05:00 36.7 C 95 H 16 130/68 95 05/02/21 04:16 36.7 C 96 H 18 120/73 94 05/02/21 04:00 36.8 C 96 H 18 136/71 94 05/02/21 03:30 36.6 C 96 H 16 123/74 94 05/02/21 03:15 36.9 C 102 H 18 136/77 94 05/02/21 03:00 36.6 C 105 H 18 128/77 93 05/02/21 02:55 36.6 C 102 H 18 128/77 93 05/02/21 00:11 85 05/01/21 23:35 36.8 C 97 H 18 146/79 H 95 all noted and reviewed including below (1) Acute renal failure Acute renal failure type: unspecified Qualified Code(s): N17.9 - Acute kidney failure, unspecified
[2021-05-02] MEDS ORDERED: Nursing to Pharmacy Communication SCH (12:15)
[2021-05-02 12:37] LABS: Basophils # (auto) 0.03 K/uL (0-0.2); Basophils % (auto) 0.3 %; Eosinophils # (auto) 0.11 K/uL (0-0.5); Eosinophils % (auto) 1.3 %; Hematocrit (blood only) 29.4 % (37-47); Hemoglobin 9.8 g/dL (12.0-16.0); Immature Granulocytes # (auto) 0.01 K/uL (0.00-0.02); Immature Granulocytes % (auto) 0.1 %; Lymphocytes # (auto) 1.89 K/uL (1.2-3.4); Lymphocytes % (auto) 21.5 %; Mean Corpuscular Hemoglobin 28.5 pg (25-34); Mean Corpuscular Hgb Conc 33.3 g/dL (32-36); Mean Corpuscular Volume 85.5 fL (80-100); Mean Platelet Volume 11.8 fL (7.4-10.4); Monocytes # (auto) 0.46 K/uL (0.11-0.59); Monocytes % (auto) 5.2 %; Neutrophils # (auto) 6.29 K/uL (1.4-6.5); Neutrophils % (auto) 71.6 %; Platelet Count 190 K/uL (130-400); RDW Coefficient of Variation 15.1 % (11.5-14.5); RDW Standard Deviation 46.7 fL (36.4-46.3); Red Blood Count 3.44 M/uL (4.2-5.4); White Blood Count 8.79 K/uL (4.8-10.8)
[2021-05-02 12:43] LABS: BUN Creatinine Ratio 27.5 (10-20); Calcium 7.6 mg/dl (8.5-10.1); Creatinine Clr Calc Pharmacy 60.7 ml/min; Est GFR (African American) 78.2 ml/min; Est GFR (Non-African American) 67.5 ml/min; Magnesium 1.8 mg/dl (1.8-2.4); Potassium 3.3 mmol/L (3.5-5.1)
[2021-05-02 12:45] LABS: Phosphorus 2.8 mg/dl (2.5-4.9)
[2021-05-02] MEDS ORDERED: POTASSIUM CHLORIDE CRTAB 20 MEQ TABCR PO STA (14:56)
[2021-05-02] MEDS ORDERED: LACTULOSE SYRUP 30 GM/45 ML UDP PO STA (17:31)
[2021-05-02] MEDS: ATORVASTATIN 40 MG TAB PO SCH (21:01)
[2021-05-03] MEDS: INSULIN ASPART 100 UNITS/ML 3 ML PEN SC SCH ×4 (00:07→18:30)
[2021-05-03] MEDS: PANTOprazole 40 MG in DEXTROSE 5% 100 ML IV SCH ×4 (04:22→20:25)
[2021-05-03] MEDS: PIPERACILLIN/TAZOBACTAM 3.375 GM in DEXTROSE 5% 100 ML IV SCH ×2 (04:23→12:45)
[2021-05-03 07:16] LABS: Basophils # (auto) 0.03 K/uL (0-0.2); Basophils % (auto) 0.3 %; Eosinophils # (auto) 0.08 K/uL (0-0.5); Eosinophils % (auto) 0.8 %; Hemoglobin 8.5 g/dL (12.0-16.0); Immature Granulocytes # (auto) 0.01 K/uL (0.00-0.02); Immature Granulocytes % (auto) 0.1 %; Lymphocytes # (auto) 1.52 K/uL (1.2-3.4); Lymphocytes % (auto) 15.8 %; Mean Corpuscular Hemoglobin 27.9 pg (25-34); Mean Corpuscular Hgb Conc 32.7 g/dL (32-36); Mean Corpuscular Volume 85.2 fL (80-100); Mean Platelet Volume 12.6 fL (7.4-10.4); Monocytes # (auto) 0.37 K/uL (0.11-0.59); Monocytes % (auto) 3.9 %; Neutrophils % (auto) 79.1 %; Platelet Count 178 K/uL (130-400); RDW Coefficient of Variation 15.6 % (11.5-14.5); RDW Standard Deviation 48.1 fL (36.4-46.3); Red Blood Count 3.05 M/uL (4.2-5.4); White Blood Count 9.61 K/uL (4.8-10.8)
[2021-05-03 07:49] LABS: BUN Creatinine Ratio 22.8 (10-20); Creatinine Clr Calc Pharmacy 73.1 ml/min; Est GFR (African American) 87.9 ml/min; Est GFR (Non-African American) 75.8 ml/min
[2021-05-03] MEDS: POT PHOSPHATE MONOBASIC W/ SOD TAB PO SCH ×4 (08:44→20:25)
[2021-05-03] MEDS: GABAPENTIN 100 MG CAP PO SCH ×2 (08:44→20:27)
[2021-05-03] MEDS: FOLIC ACID 1 MG TAB PO SCH (08:45)
[2021-05-03] MEDS: INSULIN GLARGINE SOLOSTAR 100 UNITS/ML 3 ML PEN SC SCH (08:47)
--- NOTE | 2021-05-03 10:13 | Gastrointestinal Consultation ---
Date of Consultation May 03, 2021 Assessment & Plan (1) Acute blood loss anemia: Pt with melena, anemia. Stable post transfusion, BMs are now brown. No evidence of infection. Pt wants to eat and go home. Recommend holding plavix on DC until after EGD, colonosocpy that has been arranged at for Monday (2) Complaint of melena: See above Supervising Physician Co-Signing Physician Notes Attending attestation I have seen, examined this patient, and agree with the findings and above by our mid-level provider AMY Velásquez, with the following additions: Anemia with some concern of melena, will plan for EGD tomorrow. Ok to continue IV PPI NPO after MN History of Present Illness Reason for Consultation: MELENA, ANEMIA Requesting Physician: Dr. Miranda Attending Physician: Will Miranda MD History of Present Illness Ms. Nirali Panchal is a 70 yr old female pt of Dr. Dory Ray with a hx of DM- 2, peptic ulcer, HTN, Hyperlipidemia, CVA on Plavix. She reports black diarrhea, 2-3 BMs/day from Saturday 04/21 through 04/29 and was told to report to the ED due to the black color of the BMs. She denies having had any body aches, nausea/vomiting, weakness or abdominal pain. On arrival, Hb was 10 and dropped to 6.6 yesterday, then received 2 units of RBCs and Hb is 8.5, this morning. BUN was elevated on arrival at 77 and is now normal. Stool culture and stool for C-diff are (-). Blood, urine cultures are negative thus far. Yesterday, a brown liquid BM was documented. This morning, she has not passed a BMs yet, is free of pain, vitals are stable and she asks to eat and go home. She has never previously undergone colonoscopy. Hx reports PUD but no record of EGDs in the [employer] [facility]. Allergies Allergy/AdvReac Type Severity Reaction Status Date / Time No Known Allergies Allergy Mild Verified 04/29/21 23:21 Home Medications Medication Instructions Recorded Confirmed Type amlodipine 2.5 mg tablet 2.5 mg PO BID 01/12/21 04/30/21 History atorvastatin 40 mg tablet 40 mg PO HS 01/12/21 04/30/21 History clopidogrel 75 mg tablet 75 mg PO QAM 01/12/21 04/30/21 History hydralazine 50 mg tablet 50 mg PO TID 01/12/21 04/30/21 History metformin 500 mg tablet,extended 1,000 mg PO QAM 01/12/21 04/30/21 History release 24 hr metoprolol tartrate 50 mg tablet 50 mg PO BID 01/12/21 04/30/21 History lisinopril 20 mg tablet 20 mg PO BID 02/11/21 04/30/21 History hydrocodone 5 mg-acetaminophen 325 1 tab PO Q4H PRN #14 tab 02/16/21 04/30/21 Rx mg tablet ondansetron HCl 8 mg tablet 8 mg PO Q8H PRN #10 tab 02/16/21 04/30/21 Rx gabapentin 100 mg capsule 100 mg PO TID 04/29/21 04/30/21 History Patient History Medical History Diabetes mellitus, type 2 NIDDM History of gastric ulcer HTN (hypertension) Hyperlipidemia On anticoagulant therapy on plavix daily Stroke 2015--d/t high bp/blood clot--no deficits--follows with PCP only, no neurologist--reason for plavix Surgical History History of gynecologic surgery "infection on uterus" per pt had to clean out History of tooth extraction all top teeth Hx of oral surgery Removal of Exposed Bone of Anterior Mandible from recent facial Infection; Removal of Teeth #,20, 23, 24, 25, 26, 27 and 28 primary closure from advancement flap to obtain closure over exposed bone. Dr. Carrasco 02/16/21 Family History Other Family history non-contributory No family history of adverse response to anesthesia Social History Smoking Status: Former smoker Tobacco Type: Cigarettes packs per day: 1; Years Smoked: 20; Second Hand Exposure: No; Do You Dip or Chew Tobacco: No; Tobacco Cessation Education Requested by Patient: No Hx Alcohol Use: No Hx Substance Use: No Preferred Language: Syrian Communication Ability: Effective Visual Impairment: Partially Limited Blocker Automatic Required: No Beliefs That Will Affect Care: None marital status: Current Living Situation: Spouse Current Living Situation Comment: Lives with and daughter current occupational status: retired How many Children do You have: 5 Other Information That Helps Us Care for You: No Feels Safe at Home: Yes Safety Concerns: Feels Safe At This Time during the past year weight has: remained stable Assistive Devices: None Review of Systems Review of Systems: ROS: Gen: Denies weakness, fevers, weight loss Eyes: No eye redness, or pain, no recent vision changes Resp: No SOB, no cough Cardio: No palpitations/irregular beats, no chest pain GI: As per HPI, otherwise negative : Denies pain on urination Skin: No jaundice, itching or new rashes Physical Exam Constitutional: well developed and cooperative Eyes: PERRL, conjunctivae normal, anicteric sclerae Respiratory: normal respiratory effort, lungs clear to auscultation Cardiovascular: RRR, no murmur, no edema Gastrointestinal (Abdomen): normal bowel sounds, soft, nontender, no hepatosplenomegaly Skin: no rashes, warm and dry normal turgor Neurologic: PERRL, EOMI, accommodation nl, no face palsy, no dysarthria awake; not confused Psychiatric: A+Ox3, euthymic affect Orientation: alert, oriented x 3 and cooperative Results & Data ([facility]) Vital Signs (Past 12 Hours) Vital Signs Temp Pulse Pulse Pulse Resp BP Pulse Ox 05/03/21 07:12 37.1 C 101 H 18 132/82 95 05/03/21 03:46 37.7 C H 120 H 18 131/80 95 05/03/21 00:45 105 H 05/02/21 23:01 36.7 C 118 H 16 146/91 H 96 Laboratory Results WBC 9, Hb 7.7->8.5, Hct 26, platelets 178, Na 147, K 3, Cl 111, CO2 28, BUN 18, Cr 0.77, C-diff (-), Stool Cx (-).
[2021-05-03] MEDS: POTASSIUM CHLORIDE CRTAB 20 MEQ TABCR PO SCH ×2 (11:32→20:31)
[2021-05-03 11:59] LABS: Hematocrit (blood only) 25.3 % (37-47); Hemoglobin 8.4 g/dL (12.0-16.0)
--- NOTE | 2021-05-03 14:42 | Communication Note ---
Date of Service: May 03, 2021 Early this afternoon, after initially seeing and writing consult on the pt, she told us that she passed a black loose stool. We were unable to see as she had flushed. Will plan to do EGD tomorrow morning. Plan for OP colonoscopy on Monday - though will depend on EGD findings and clinical course.
--- NOTE | 2021-05-03 18:58 | Hospitalist Progress Note ---
Date of Service May 03, 2021 Assessment & Plan (1) Hypotension due to hypovolemia: Plan: likely 2/2 hypovolemia from dehydration. Poor PO intake over several days with diarrhea and multiple antihypertensives BP improved after 2 L of NSS boluses BP remains stable C diff and stool culture ordered received IV Zosyn x 3 days (2) Acute blood loss anemia: Plan: likely secondary to Acute GI Bleed (+) melena at home per patient's daughter on Plavix no EGD/Colonoscopy on record Hg dropped from 10 to 6.6 anemia panel pending 2 units pRBC ordered Hg stable at 8.5 Protonix drip GI consulted for EGD tomorrow (3) Acute renal failure: Plan: Creatinine improved from 3 now 0.9 DC IV fluids as above Nephrology consulted Hypophosphatemia and hypomagnesemia replaced (4) COVID-19: Plan: diagnosed with this about one month ago. Currently not coughing or exhibiting symptoms. Should not need isolation at this time. (5) Diabetes mellitus, type 2: Plan: Hold home oral meds, utilize basal bolus insulin while hospitalized. A1c 6.6 (6) H/O: stroke: Plan: Continue Plavix and statin for secondary stroke prophylaxis. (7) DVT prophylaxis: Plan: Hold Lovenox for anemia SCDs Full code Disposition-pending lives with daughter at home PT/OT eval Admission and Anticipated Discharge Date Admission Date: April 30, 2021 Subjective Follow-up for diarrhea, melena, GI bleed, etc. Seen resting in bed, comfortable, not in distress Oriented, answers questions appropriately Verbalized desire to go home today Explained to patient that we need to monitor her hemoglobin, and that I would also confirm with her daughter regarding discharge plans Denies headache, dizziness, chest pain, palpitations, shortness of breath, abdominal pain, nausea vomiting, fevers chills No other symptoms Review of Systems Review of Systems: all noted and negative except for above Physical Exam Physical Exam: General- oriented x 2, not in distress, speaks in sentences with no effort or accessory muscle use Eyes- anicteric Neck- no JVD Lungs- clear BS BL no rales/wheezing Heart- normal rate, regular rhythm; no murmurs Abdomen- normal bowel sounds, nondistended, soft, nontender Extremities- no pretibial edema, no calf tenderness Neuro- alert, oriented x 2; no gross focal neurologic deficits Skin- warm & dry Results & Data Results & Data ([facility]) Vital Signs (Past 12 Hours) Vital Signs Temp Pulse Resp BP BP Pulse Ox 05/03/21 15:35 36.8 C 108 H 18 132/80 96 05/03/21 12:30 36.9 C 103 H 20 127/78 95 05/03/21 07:12 37.1 C 101 H 18 132/82 95 all noted and reviewed including below (1) Acute renal failure Acute renal failure type: unspecified Qualified Code(s): N17.9 - Acute kidney failure, unspecified
[2021-05-03] MEDS: ATORVASTATIN 40 MG TAB PO SCH (20:30)
[2021-05-04] MEDS: PANTOprazole 40 MG in DEXTROSE 5% 100 ML IV SCH ×2 (00:40→06:28)
[2021-05-04] MEDS: INSULIN ASPART 100 UNITS/ML 3 ML PEN SC SCH ×5 (00:41→20:37)
[2021-05-04 08:13] LABS: Basophils # (auto) 0.03 K/uL (0-0.2); Basophils % (auto) 0.4 %; Eosinophils # (auto) 0.16 K/uL (0-0.5); Eosinophils % (auto) 2.3 %; Hematocrit (blood only) 22.2 % (37-47); Hemoglobin 7.2 g/dL (12.0-16.0); Immature Granulocytes # (auto) 0.01 K/uL (0.00-0.02); Immature Granulocytes % (auto) 0.1 %; Lymphocytes # (auto) 1.36 K/uL (1.2-3.4); Lymphocytes % (auto) 19.8 %; Mean Corpuscular Hgb Conc 32.4 g/dL (32-36); Mean Corpuscular Volume 86.4 fL (80-100); Mean Platelet Volume 12.4 fL (7.4-10.4); Monocytes # (auto) 0.18 K/uL (0.11-0.59); Monocytes % (auto) 2.6 %; Neutrophils # (auto) 5.14 K/uL (1.4-6.5); Neutrophils % (auto) 74.8 %; Platelet Count 158 K/uL (130-400); RDW Coefficient of Variation 15.8 % (11.5-14.5); RDW Standard Deviation 49.6 fL (36.4-46.3); Red Blood Count 2.57 M/uL (4.2-5.4); White Blood Count 6.88 K/uL (4.8-10.8)
[2021-05-04] MEDS ORDERED: SODIUM CHLORIDE 0.9% 250 ML IV PRN (08:34)
[2021-05-04 08:40] LABS: BUN Creatinine Ratio 25.5 (10-20); Calcium 7.9 mg/dl (8.5-10.1); Creatinine Clr Calc Pharmacy 68.6 ml/min; Est GFR (African American) 90.7 ml/min; Est GFR (Non-African American) 78.2 ml/min; Potassium 3.2 mmol/L (3.5-5.1)
--- NOTE | 2021-05-04 08:40 | Gastroenterology Progress Note ---
Date of Service May 04, 2021 Assessment & Plan (1) Complaint of melena: Plan: Plan for EGD today and disposition pending results Admission and Anticipated Discharge Date Admission Date: April 30, 2021 Subjective No bleeding overnight Physical Exam Constitutional: WD/WN, vitals as above Cardiovascular: RRR, no murmur, no edema Gastrointestinal (Abdomen): normal bowel sounds, soft, nontender, no h epatosplenomegaly Results & Data ([facility]) Vital Signs (Past 12 Hours) Vital Signs Temp Pulse Pulse Resp BP BP Pulse Ox 05/04/21 08:04 36.7 C 106 H 18 145/97 H 96 05/04/21 07:33 36.7 C 92 H 20 121/75 94 05/04/21 05:11 37.1 C 96 H 18 104/70 95 05/04/21 01:25 96 H 05/04/21 00:00 37.1 C 103 H 18 139/86 95
[2021-05-04] MEDS ORDERED: ePHEDrine sulfate 50 MG/ML AMP IV PRN (08:45)
[2021-05-04] MEDS ORDERED: ATROPINE SULFATE 0.1 MG/ML 10ML SYR IV PRN (08:45)
--- NOTE | 2021-05-04 08:45 | Anesthesiology Consultation ---
Date of Service May 04, 2021 Assessment & Plan Chart Review Chart Review: Acceptable Risk for Surgery and Patient NOT seen in Pre Admission Testing Consults Requested none ASA ASA4 Proposed Anesthesia Anesthesia Type: MAC Risk / Benefits Reviewed With: PT / POA / Parent / Guardian, Accepts Plan and Informed Consent Obtained Additional Comments: 04/29/2021- covid test neg. History Surgery Operation Date: 05/04/21 17:00 Proposed Procedures p Esophagogastroduodenoscopy Dr Novoa - Cory Novoa MD Height/Weight Height: 5 ft 8 in Weight: 75.6 kg Allergies Allergy/AdvReac Type Severity Reaction Status Date / Time No Known Allergies Allergy Mild Verified 05/04/21 08:09 Medications Home Medications Medication Instructions Recorded Confirmed Last Taken amlodipine 2.5 mg tablet 2.5 mg PO BID 01/12/21 04/30/21 02/16/21 04:30 atorvastatin 40 mg tablet 40 mg PO HS 01/12/21 04/30/21 02/15/21 20:00 clopidogrel 75 mg tablet 75 mg PO QAM 01/12/21 05/04/21 04/30/21 hydralazine 50 mg tablet 50 mg PO TID 01/12/21 04/30/21 02/15/21 20:00 metformin 500 mg tablet,extended 1,000 mg PO QAM 01/12/21 04/30/21 02/15/21 08:00 release 24 hr metoprolol tartrate 50 mg tablet 50 mg PO BID 01/12/21 04/30/21 02/16/21 04:30 lisinopril 20 mg tablet 20 mg PO BID 02/11/21 04/30/21 02/15/21 20:00 hydrocodone 5 mg-acetaminophen 325 1 tab PO Q4H PRN #14 tab 02/16/21 04/30/21 Unknown mg tablet ondansetron HCl 8 mg tablet 8 mg PO Q8H PRN #10 tab 02/16/21 04/30/21 Unknown gabapentin 100 mg capsule 100 mg PO TID 04/29/21 04/30/21 Unknown Active Medications Generic Name Dose Route Start Last Admin Trade Name Freq PRN Reason Stop Dose Admin Atorvastatin Calcium 40 mg 04/30/21 21:00 05/03/21 20:30 Atorvastatin 40 Mg Tab PO 05/30/21 20:59 40 mg HS JOSE Administration Folic Acid 1 mg 05/03/21 09:00 05/03/21 08:45 Folic Acid 1 Mg Tab PO 06/02/21 08:59 1 mg QAM JOSE Administration Gabapentin 100 mg 05/01/21 21:00 05/03/21 20:27 Gabapentin 100 Mg Cap PO 05/31/21 20:59 100 mg BID JOSE Administration Pantoprazole Sodium 40 mg/ 100 mls @ 20 mls/hr 05/02/21 08:15 05/04/21 06:28 Dextrose IV 06/01/21 08:14 8 mg/hr Q5H JOSE 20 mls/hr Administration 8 MG/HR Insulin Aspart 0 units 05/02/21 18:00 05/04/21 06:30 Insulin Aspart 100 Units/Ml 3 Ml Pen SC 06/01/21 17:59 Not Given Q6 JOSE Ondansetron HCl 4 mg 04/30/21 08:40 04/30/21 21:04 Ondansetron Inj 2 Mg/Ml 2 Ml Vial IV 05/30/21 08:39 4 mg Q6H PRN Administration Nausea Potassium Chloride 40 meq 05/03/21 09:45 05/03/21 20:31 Potassium Chloride Crtab 20 Meq Tabcr PO 06/02/21 09:44 40 meq BID JOSE Administration Potassium Phosphate 2 tab 05/01/21 09:00 05/03/21 20:25 Pot Phosphate Monobasic W/ Sod Tab PO 05/31/21 08:59 2 tab QID JOSE Administration NPO Date Last Intake of Fluids: 05/03/21 Time Last Intake of Fluids: 23:00 Date Last Intake of Solids: 04/30/21 Time Last Intake of Solids: 18:00 Past Medical History Medical History Diabetes mellitus, type 2 NIDDM History of gastric ulcer HTN (hypertension) Hyperlipidemia On anticoagulant therapy on plavix daily Stroke 2015--d/t high bp/blood clot--no deficits--follows with PCP only, no neurologist--reason for plavix Exercise / Class Metabolic Activity III < 4 Walking/Shop/Light housework Past Family History Family History Other Family history non-contributory No family history of adverse response to anesthesia Past Surgical History Surgical History History of gynecologic surgery "infection on uterus" per pt had to clean out History of tooth extraction all top teeth Hx of oral surgery Removal of Exposed Bone of Anterior Mandible from recent facial Infection; R emoval of Teeth #,20, 23, 24, 25, 26, 27 and 28 primary closure from advancement flap to obtain closure over exposed bone. Dr. Carrasco 02/16/21 Past Anesthesia History No Hx of Anesthesia Complications and No Family Hx of Anesthesia Complications History of PONV No Hx of PONV and No Hx of Motion Sickness Social History Smoking Status: Former smoker Do You Dip or Chew Tobacco: No Hx Alcohol Use: No Hx Substance Use: No substance use type: does not use Physical Exam Vital Signs Last Vital Signs Temp 36.7 C 05/04/21 08:04 Pulse 106 H 05/04/21 08:04 Resp 18 05/04/21 08:04 BP 145/97 H 05/04/21 08:04 Pulse Ox 96 05/04/21 08:04 Constitutional not obese ENMT Mouth: + dentition abnormality and + edentulous Thyromental Distance: < 3.5 Finger Breadths Mallampati Class: II Neck normal visual inspection and trachea midline; neck extension not limited Respiratory normal respiratory effort Auscultation: lungs clear to auscultation bilaterally Cardiovascular Rate/Rhythm: regular rate and regular rhythm Heart Sounds: no murmur Vessels: no carotid bruit Musculoskeletal Spine: normal cervical ROM Extremities: extremities normal to inspection Neurologic moves all extremities Motor/Sensory: + sensory deficit Psychiatric Orientation: alert and oriented x 3 Testing Laboratory Results 05/04/21 07:08 05/04/21 07:08 PT 12.0 Seconds (9.0-12.0) 04/29/21 23:06 INR 1.2 (0.9-1.1) H 04/29/21 23:06 APTT 22.8 Seconds (21.0-31.0) 04/29/21 23:06 Hemoglobin A1c 6.6 % (4.5-5.6) H 05/01/21 07:10 Urine Color Yellow 04/30/21 10:59 Urine Appearance Cloudy (Clear) A 04/30/21 10:59 Urine pH 5.0 (4.5-7.5) 04/30/21 10:59 Ur Specific Hernandez 1.014 (1.000-1.030) 04/30/21 10:59 Urine Protein Trace (Negative) H 04/30/21 10:59 Urine Glucose (UA) Negative (Negative) 04/30/21 10:59 Urine Ketones Trace (Negative) H 04/30/21 10:59 Urine Nitrite Negative (Negative) 04/30/21 10:59 Ur Leukocyte Esterase 3+ (Negative) H 04/30/21 10:59 Urine WBC (Auto) >30 /hpf (0-5) H 04/30/21 10:59 Urine RBC (Auto) 0-4 /hpf (0-4) 04/30/21 10:59 U Hyaline Cast (Auto) 5-10 /lpf (0-5) H 04/30/21 10:59 U Epithel Cells (Auto) >30 /lpf (0-5) H 04/30/21 10:59 Urine Bacteria (Auto) Negative (Negative) 04/30/21 10:59 Blood Type A Positive 05/02/21 00:23 Antibody Screen NEGATIVE 05/02/21 00:23 05/02/21 11:33 Escherichia coli Shiga Toxins Test - Preliminary Stool Stool Culture - Preliminary No Salmonella isolated to date, No Shigella isolated to date, No Campylobacter jejuni isolated to date. 04/29/21 23:06 Aerobic Blood Culture - Preliminary Blood No growth in Aerobic bottle after 48 hours. Anaerobic Blood Culture - Preliminary No growth in Anaerobic bottle after 48 hours. 04/29/21 23:06 Aerobic Blood Culture - Preliminary Blood No growth in Aerobic bottle after 48 hours. Anaerobic Blood Culture - Preliminary No growth in Anaerobic bottle after 48 hours. 04/30/21 10:59 Urine Culture - Final Urine,Clean Catch More than three types of organisms present, all high counts. Repeat collection recommended. No further identifications or sensitivities to follow. 05/04/21 05/04/21 05/04/21 07:26 06:30 00:36 POC Glucose 122 H 118 H 119 H
[2021-05-04 08:47] LABS: Ovalocytes 1+
--- NOTE | 2021-05-04 09:29 | GI REPORT ---
Patient Name: Nirali Panchal Procedure Date: 05/04/2021 8:42 AM Date of : 1950 Admit Type: Inpatient Age: 70 Gender: Female Attending MD: Cory Novoa MD Procedure: Upper GI endoscopy Providers: Cory Novoa MD Referring MD: Dory Ray Indications: Melena Medicines: Monitored Anesthesia Care Complications: No immediate complications. Estimated blood loss: None. Estimated Blood Loss: Estimated blood loss: none. Procedure: Pre-Anesthesia Assessment: - Pre-Anesthesia Assessment: - Prior to the procedure, a History and Physical was performed, and patient medications, allergies and sensitivities were reviewed. The patient's tolerance of previous anesthesia was reviewed. Please see [employer] for complete details. - The risks and benefits of the procedure and the sedation options and risks were discussed with the patient. All questions were answered and informed consent was obtained. - Patient identification and proposed procedure were verified prior to the procedure by the physician and the nurse. The procedure was verified in the pre-procedure area in the procedure room. After obtaining informed consent, the endoscope was passed carefully and meticuously under direct vision and only advanced when the lumen was clearly identified, C02 insuflation was utilized throughout the entirity of the procedure. Throughout the procedure, the patient's blood pressure, pulse, and oxygen saturations were monitored continuously. After obtaining informed consent, the endoscope was passed under direct vision. Throughout the procedure, the patient's blood pressure, pulse, and oxygen saturations were monitored continuously. The Endoscope was introduced through the mouth, and advanced to the third part of duodenum. The upper GI endoscopy was accomplished without difficulty. The patient tolerated the procedure well. Findings: The examined esophagus was normal. The entire examined stomach was normal. Biopsies were taken with a cold forceps for Helicobacter pylori testing. Two non-bleeding cratered duodenal ulcers with a clean ulcer base (Matheus Class III) were found in the duodenal bulb. The largest lesion was 6 mm in largest dimension. Impression: - Normal esophagus. - Normal stomach. Biopsied. - Non-bleeding duodenal ulcers with a clean ulcer base (Matheus Class III). Recommendation: - Await pathology results. - [facility] care. - BID PPI, ok for Liquid diet. Hold plavix one additional day. Would monitor overnight given clinical course. Consider one additional unit of blood given Hb. Cory Novoa MD 05/04/2021 9:29:15 AM This report has been signed electronically. Note Initiated On: 05/04/2021 8:42 AM Number of Addenda: 0 I attest to the content of the Intraoperative Record and orders documented therein, exceptions below {[id number]}
--- NOTE | 2021-05-04 09:44 | Anesthesiology Progress Note ---
Date of Service May 04, 2021 Anesthesia Post Procedure Vital Signs Vital Signs: Temp Pulse Pulse Resp BP BP Pulse Ox 05/04/21 09:36 78 16 116/64 95 05/04/21 09:21 79 16 148/77 H 96 05/04/21 08:04 36.7 C 106 H 18 145/97 H 96 05/04/21 07:33 36.7 C 92 H 20 121/75 94 05/04/21 05:11 37.1 C 96 H 18 104/70 95 05/04/21 01:25 96 H 05/04/21 00:00 37.1 C 103 H 18 139/86 95 05/03/21 20:00 36.8 C 102 H 18 134/81 94 05/03/21 15:35 36.8 C 108 H 18 132/80 96 05/03/21 12:30 36.9 C 103 H 20 127/78 95 Transfer of Care Handoff Completed per policy Notes Mental Status: alert / awake / arousable Patient Amnestic to Procedure: Yes Nausea / Vomiting: adequately controlled Pain: adequately controlled Airway Patency, RR, SpO2: stable & adequate BP & HR: stable & adequate Hydration State: stable & adequate Anesthetic Complications: no major complications apparent
[2021-05-04] MEDS ORDERED: LIDOCAINE 2% 2 ML VIAL/AMP(20MG/ML) INFIL ONE (11:24)
[2021-05-04] MEDS ORDERED: PROPOFOL IV EMULSION 10 MG/ML 20 ML VIAL IV ONE (11:24)
[2021-05-04] MEDS: GABAPENTIN 100 MG CAP PO SCH ×2 (11:27→20:38)
[2021-05-04] MEDS: POTASSIUM CHLORIDE CRTAB 20 MEQ TABCR PO SCH ×2 (11:27→20:40)
[2021-05-04] MEDS: FOLIC ACID 1 MG TAB PO SCH (11:28)
[2021-05-04] MEDS: POT PHOSPHATE MONOBASIC W/ SOD TAB PO SCH ×4 (11:28→20:38)
[2021-05-04 16:03] LABS: Hematocrit (blood only) 26.5 % (37-47); Hemoglobin 8.9 g/dL (12.0-16.0)
--- NOTE | 2021-05-04 16:30 | Hospitalist Progress Note ---
Date of Service May 04, 2021 Assessment & Plan (1) Hypotension due to hypovolemia: Plan: likely 2/2 hypovolemia from dehydration. Poor PO intake over several days with diarrhea and multiple antihypertensives BP improved after 2 L of NSS boluses BP remains stable C. difficile: Negative received IV Zosyn x 3 days Diarrhea resolved (2) Acute blood loss anemia: Plan: likely secondary to Acute GI Bleed, possibly secondary to duodenal ulcer Folate deficiency (+) melena at home per patient's daughter on Plavix no EGD/Colonoscopy on record Hg dropped from 10 to 6.6 Iron level: 60 Folate low at 4.8, folic acid supplement ordered 2 units packed RBCs ordered, hemoglobin still at 7.5 Third unit ordered for today 05/04/2021: Status post EGD by Dr. Novoa-normal stomach, nonbleeding duodenal u lcer with a clean ulcer base Change Protonix drip to Protonix twice daily Hold Plavix for additional 1 day Repeat CBC tomorrow (3) Acute renal failure: Plan: Creatinine improved from 3 now 0.9 DC IV fluids as above Nephrology consulted Hypophosphatemia and hypomagnesemia replaced (4) COVID-19: Plan: diagnosed with this about one month ago. Currently not coughing or exhibiting symptoms. Should not need isolation at this time. (5) Diabetes mellitus, type 2: Plan: Hold home oral meds, utilize basal bolus insulin while hospitalized. A1c 6.6 (6) H/O: stroke: Plan: Plavix on hold for GI bleed statin for secondary stroke prophylaxis. (7) DVT prophylaxis: Plan: Hold Lovenox for anemia SCDs Full code Disposition-pending lives with daughter at home PT/OT eval Admission and Anticipated Discharge Date Admission Date: April 30, 2021 Subjective Follow-up for diarrhea, GI bleed, etc. Status post EGD today Seen sitting up in bed, blood transfusion in progress Comfortable, not in distress States that she feels fine overall Denies headache, chest pain, dizziness, palpitations, shortness of breath, n ausea No abdominal pain Tolerating diet well No other symptoms Review of Systems Review of Systems: all noted and negative except for above Physical Exam Physical Exam: General- oriented x 2, not in distress, speaks in sentences with no effort or accessory muscle use Eyes- anicteric Neck- no JVD Lungs- clear to auscultation bilaterally, no crackles, no wheezing Heart- normal rate, regular rhythm; no murmurs Abdomen- normal bowel sounds, nondistended, soft, nontender Extremities- no pretibial edema, no calf tenderness Neuro- alert, oriented x 2; no gross focal neurologic deficits Skin- warm & dry Results & Data Results & Data ([facility]) Vital Signs (Past 12 Hours) Vital Signs Temp Pulse Pulse Resp BP BP BP 05/04/21 15:43 37.6 C H 103 H 20 135/84 05/04/21 13:47 36.7 C 98 H 20 124/76 05/04/21 13:05 36.9 C 104 H 20 110/67 05/04/21 12:05 36.6 C 95 H 18 130/74 05/04/21 11:36 36.7 C 96 H 20 144/86 H 05/04/21 11:22 36.8 C 93 H 18 149/81 H 05/04/21 11:11 36.7 C 92 H 18 147/88 H 05/04/21 11:00 36.7 C 92 H 18 147/88 H 05/04/21 09:51 89 16 132/77 05/04/21 09:36 78 16 116/64 05/04/21 09:21 79 16 148/77 H 05/04/21 08:04 36.7 C 106 H 18 145/97 H 05/04/21 07:33 36.7 C 92 H 20 121/75 05/04/21 05:11 37.1 C 96 H 18 104/70 Pulse Ox 05/04/21 15:43 95 05/04/21 13:47 96 05/04/21 13:05 97 05/04/21 12:05 97 05/04/21 11:36 96 05/04/21 11:22 96 05/04/21 11:11 95 05/04/21 11:00 95 05/04/21 09:51 96 05/04/21 09:36 95 05/04/21 09:21 96 05/04/21 08:04 96 05/04/21 07:33 94 05/04/21 05:11 95 all noted and reviewed including below (1) Acute renal failure Acute renal failure type: unspecified Qualified Code(s): N17.9 - Acute kidney failure, unspecified
[2021-05-04 17:12] LABS: Magnesium 1.9 mg/dl (1.8-2.4)
[2021-05-04] MEDS ORDERED: Nursing to Pharmacy Communication SCH ×2 (17:15)
[2021-05-04] MEDS: ATORVASTATIN 40 MG TAB PO SCH (20:39)
[2021-05-04] MEDS: PANTOprazole 40 MG in SYRINGE 0 ML IV SCH (20:52)
[2021-05-05 07:08] LABS: Basophils # (auto) 0.03 K/uL (0-0.2); Basophils % (auto) 0.4 %; Eosinophils # (auto) 0.22 K/uL (0-0.5); Eosinophils % (auto) 2.9 %; Hematocrit (blood only) 26.9 % (37-47); Hemoglobin 8.9 g/dL (12.0-16.0); Immature Granulocytes # (auto) 0.01 K/uL (0.00-0.02); Immature Granulocytes % (auto) 0.1 %; Lymphocytes # (auto) 1.38 K/uL (1.2-3.4); Lymphocytes % (auto) 18.2 %; Mean Corpuscular Hemoglobin 29.2 pg (25-34); Mean Corpuscular Hgb Conc 33.1 g/dL (32-36); Mean Corpuscular Volume 88.2 fL (80-100); Monocytes # (auto) 0.21 K/uL (0.11-0.59); Monocytes % (auto) 2.8 %; Neutrophils # (auto) 5.72 K/uL (1.4-6.5); Neutrophils % (auto) 75.6 %; Platelet Count 155 K/uL (130-400); RDW Coefficient of Variation 16.2 % (11.5-14.5); RDW Standard Deviation 51.1 fL (36.4-46.3); Red Blood Count 3.05 M/uL (4.2-5.4); White Blood Count 7.57 K/uL (4.8-10.8)
[2021-05-05 07:53] LABS: BUN Creatinine Ratio 14.9 (10-20); Calcium 8.2 mg/dl (8.5-10.1); Creatinine Clr Calc Pharmacy 69.5 ml/min; Est GFR (African American) 92.1 ml/min; Est GFR (Non-African American) 79.5 ml/min; Magnesium 1.6 mg/dl (1.8-2.4); Potassium 3.7 mmol/L (3.5-5.1)
[2021-05-05] MEDS: GABAPENTIN 100 MG CAP PO SCH (08:12)
[2021-05-05] MEDS: POTASSIUM CHLORIDE CRTAB 20 MEQ TABCR PO SCH (08:12)
[2021-05-05] MEDS: POT PHOSPHATE MONOBASIC W/ SOD TAB PO SCH ×2 (08:12→12:25)
[2021-05-05] MEDS: FOLIC ACID 1 MG TAB PO SCH (08:12)
[2021-05-05] MEDS: INSULIN ASPART 100 UNITS/ML 3 ML PEN SC SCH ×2 (08:13→12:23)
[2021-05-05] MEDS: PANTOprazole 40 MG in SYRINGE 0 ML IV SCH (08:13)
--- NOTE | 2021-05-05 13:14 | Discharge Summary ---
Date of Service May 05, 2021 Admission HPI Per Admitting Provider The patient is a 70-year-old female who recently was positive for COVID-19 on 04/02 who subsequently developed diarrhea and presents now with weakness. Work-up reveals acute renal failure and patient recently had some ongoing diarrhea. She went to an outside hospital and was discharged approximately 1 week ago. Poor p.o. intake for the last several days. Denies dizziness, chest pain, shortness of breath, fevers, chills. She reports her daughter brought her care out of concern, but she is wanting to go home. She is on multiple blood pressure agents at home. Discharge Data Allergies Allergy/AdvReac Type Severity Reaction Status Date / Time No Known Allergies Allergy Mild Verified 05/04/21 08:09 Consultations 04/29/21 23:11 ED Decision to Admit Stat 04/30/21 08:21 Consult Nephrology Stat 05/02/21 07:52 Consult Gastroenterology Routine Procedures Performed Operation Date: 05/04/21 17:00 Actual Procedures p EGD Biopsy Cytology - Cory Novoa MD Hospital Course (1) Hypotension due to hypovolemia: likely 2/2 hypovolemia from dehydration. Poor PO intake over several days with diarrhea and multiple antihypertensives BP improved after 2 L of NSS boluses BP remains stable C. difficile: Negative received IV Zosyn x 3 days Diarrhea resolved (2) Acute blood loss anemia: likely secondary to Acute GI Bleed, possibly secondary to duodenal ulcer Folate deficiency (+) melena at home per patient's daughter on Plavix no EGD/Colonoscopy on record Hg dropped from 10 to 6.6 Iron level: 60 Folate low at 4.8, folic acid supplement ordered 2 units packed RBCs ordered, hemoglobin still at 7.5 Third unit ordered for today 05/04/2021: Status post EGD by Dr. Novoa-normal stomach, nonbleeding duodenal ulcer with a clean ulcer base Change Protonix drip to Protonix twice daily Hold Plavix for additional 1 day Repeat CBC tomorrow (3) Acute renal failure: Creatinine improved from 3 now 0.9 DC IV fluids as above Nephrology consulted Hypophosphatemia and hypomagnesemia replaced (4) COVID-19: diagnosed with this about one month ago. Currently not coughing or exhibiting symptoms. Should not need isolation at this time. (5) Diabetes mellitus, type 2: Hold home oral meds, utilize basal bolus insulin while hospitalized. A1c 6.6 (6) H/O: stroke: Plavix on hold for GI bleed statin for secondary stroke prophylaxis. (7) DVT prophylaxis: Hold Lovenox for anemia SCDs Full code Disposition-pending lives with daughter at home PT/OT eval Discharge Plan Discharge Items Reason For Visit: HYPOTENSION HYPOVOLEMIA Follow-up/Referrals: Dory Ray DO [Primary Care Provider] - (Date & Time 05/12/2021 11:00 AM Provider Stefany Orozco DO Department [facility] ) Medications and DC Order Prescriptions: No Action hydrocodone-acetaminophen 5-325 mg tablet 1 tab PO Q4H PRN (Reason: pain) Qty: 14 RF: 0 ondansetron HCl 8 mg tablet 8 mg PO Q8H PRN (Reason: nausea and vomiting) Qty: 10 RF: 0 atorvastatin 40 mg tablet 40 mg PO HS RF: 0 amlodipine 2.5 mg tablet 2.5 mg PO BID RF: 0 clopidogrel 75 mg tablet 75 mg PO QAM RF: 0 metoprolol tartrate 50 mg tablet 50 mg PO BID RF: 0 hydralazine 50 mg tablet 50 mg PO TID RF: 0 metformin 500 mg tablet extended release 24 hr 1,000 mg PO QAM RF: 0 gabapentin 100 mg capsule 100 mg PO TID RF: 0 lisinopril 20 mg Tablet 20 mg PO BID RF: 0 Krames/Other Patient Handouts: A1C, Managing Type 2 Diabetes Admission Data Admit Date/Time: 04/30/21 01:18 Attending Provider: Gerber Sutton Admit Provider: Sherry Corbin Primary Care Provider: Dory Ray Other Providers: Sherry Corbin ; Yashira Coy ; Corina You ; Will Miranda Other Interventions: Discharge Summary Assessment (RN) Last Done: 05/05/21 12:51
[2021-05-05] MEDS: PANTOprazole 40 MG in DEXTROSE 5% 100 ML IV SCH (13:16)
--- NOTE | 2021-05-05 13:36 | Gastroenterology Progress Note ---
Date of Service May 05, 2021 Assessment & Plan (1) Duodenal ulcer: Plan: BID PPI x 2 months. Soft diet. No GI contraindication to DC. Eventual OP Colonoscopy in 1-2 months because most recent colonoscopy 2010. Our office will call to arrange. Admission and Anticipated Discharge Date Admission Date: April 30, 2021 Supervising Physician Co-Signing Physician Notes Attending attestation I have seen, examined this patient, and agree with the findings and above by our mid-level provider AMY Velásquez. -Patient with no signs of bleeding, will discharge on twice daily PPI for at least 2 months Subjective 70 yr old female Admitted 04/29 with melena. EGD yesterday: Non-bleeding duodenal ulcers with a clean ulcer base Today, feeling well. Hb stable at 8.9 post 3unit transfusion. Loose brown BM last evening after EGD. Review of Systems Review of Systems: ROS: Gen: Denies weakness, fevers, weight loss Eyes: No eye redness, or pain, no recent vision changes Resp: No SOB, no cough Cardio: No palpitations/irregular beats, no chest pain GI: See HPI. No abdominal pain, no nausea/vomiting : Denies pain on urination Skin: No jaundice, itching or new rashes Physical Exam Constitutional: well developed and cooperative Eyes: PERRL, conjunctivae normal, anicteric sclerae Respiratory: normal respiratory effort, lungs clear to auscultation Cardiovascular: RRR, no murmur, no edema Gastrointestinal (Abdomen): normal bowel sounds, soft, nontender, no hepatosplenomegaly Skin: no rashes, warm and dry normal turgor Neurologic: PERRL, EOMI, accommodation nl, no face palsy, no dysarthria awake; not confused Psychiatric: A+Ox3, euthymic affect Orientation: alert, oriented x 3 and cooperative Results & Data ([facility]) Vital Signs (Past 12 Hours) Vital Signs Temp Pulse Pulse Resp BP BP Pulse Ox 05/05/21 12:51 36.7 C 90 18 151/88 H 156/82 H 97 05/05/21 11:32 36.7 C 90 18 156/82 H 97 05/05/21 07:24 89 05/05/21 07:19 36.5 C 102 H 18 151/89 H 96 05/05/21 03:30 36.9 C 96 H 20 149/83 H 94 Laboratory Results WBC 7, Hb 8.9, Hct 26, Plts 155, Na 148, K 3.7, Cl 115, CO2 26, BUN 11, Cr 0.76 Diagnostic Findings EGD 05/04 Dr Novoa: - Normal esophagus. - Normal stomach. Biopsied. - Non-bleeding duodenal ulcers with a clean ulcer base (Matheus Class III).
== END 2021-05-05 16:20 | disposition home or self-care (01) | DRG 377 ==
LOC: ED 20:57 → SUATTDRO 04-30 01:18 → 2N 04-30 01:18 → 2W 04-30 13:19 → 2N 05-04 23:35

== ENCOUNTER 2024-08-15 01:17 | Inpatient (IN) ==
[2024-08-15] MEDS: SODIUM CHLORIDE 0.9% 500 ML IV ONE ×2 (02:03→02:35)
[2024-08-15 02:09] LABS: Basophils # (auto) 0.02 K/uL (0.00-0.20); Basophils % (auto) 0.2 %; Hematocrit (blood only) 39.8 % (37.0-47.0); Hemoglobin 13.3 g/dl (12.0-16.0); Immature Granulocytes # (auto) 0.03 K/uL (0.01-0.20); Immature Granulocytes % (auto) 0.4 %; Lymphocytes # (auto) 0.71 K/uL (1.20-3.40); Lymphocytes % (auto) 8.5 %; Mean Corpuscular Hemoglobin 29.3 pg (25.0-34.0); Mean Corpuscular Hgb Conc 33.4 g/dL (32.0-36.0); Mean Corpuscular Volume 87.7 fL (80.0-100.0); Mean Platelet Volume 12.5 fL (9.4-12.4); Monocytes # (auto) 0.28 K/uL (0.11-0.59); Monocytes % (auto) 3.4 %; Neutrophils # (auto) 7.28 K/uL (1.40-6.50); Neutrophils % (auto) 87.5 %; Platelet Count 150 K/uL (130-400); RDW Coefficient of Variation 13.4 % (11.5-14.5); RDW Standard Deviation 43.3 fL (36.4-46.3); Red Blood Count 4.54 M/uL (4.20-5.40); White Blood Count 8.32 K/ul (4.8-10.8)
[2024-08-15 02:10] LABS: Appearance Urine Clear (Clear); Bacteria Urine Automated 4+ (None Seen); Bilirubin Urine Negative (Negative); Blood Urine 2+ (Negative); Cast Urine Automated 0-2 /lpf (0-2); Color Urine Yellow; Epithelial Cell Urine Auto 0-2 /hpf (0-2); Glucose Urine UA Trace (Negative); Ketones Urine Negative (Negative); Leukocyte Esterase Urine Trace (Negative); Nitrite Urine Positive (Negative); Protein Urine 3+ (Negative); RBC Urine Automated >20 /hpf (0-2); Specific Gravity Urine 1.013 (1.000-1.030); Urobilinogen Urine Negative (Negative); WBC Urine Automated 21-50 /hpf (0-5); pH Urine 7.5 (4.5-7.5)
[2024-08-15 02:21] LABS: Albumin Globulin Ratio 1.7 (0.9-2); Albumin Level 4.1 gm/dl (3.4-5.0); BUN Creatinine Ratio 15.9 (10-20); Bilirubin,Total 0.8 mg/dl (0.2-1.0); Calcium 9.1 mg/dl (8.6-10.3); Creatinine Clr Calc Pharmacy 65.3 ml/min; Globulin 2.4 gm/dl (2.5-4.0); Magnesium 1.3 mg/dl (1.7-2.4); Potassium 3.3 mmol/L (3.5-5.1); Total Protein 6.5 gm/dl (6.0-8.3)
--- NOTE | 2024-08-15 02:23 | XRay Report ---
EXAM: XR chest 1V portable CLINICAL HISTORY: WEAKNESS JMF TECHNIQUE: An X-ray image of the chest is obtained in AP projection. COMPARISON: 04/29/2021 FINDINGS: Pulmonary Parenchyma: Prominent bronchovascular markings with mild peribronchial thickening is noted in the right lower zone with suspicion of patchy faint opacities. Nearly stable nodular opacity at the left mid zone, measuring 4.3 mm. Nodular opacity at the right hilum, measuring 2.1 cm. The right costophrenic angle is not included in the available image. Clear left costophrenic angle. Heart and Mediastinum: Unremarkable heart size foramen AP projection. No mediastinal widening or mediastinal masses. Bony Thorax: Diffuse decreased bone density with degenerative changes of the visualized skeleton. Soft Tissues: Soft tissues overlying the chest wall are unremarkable. IMPRESSION: 1. Prominent bronchovascular markings with mild peribronchial thickening and suspected patchy opacities in the right lower zone. Clinical correlation is advised to assess for bronchitis with suspicion of pneumonic infiltrates. (More conspicuous on the present study) 2. Nodular opacity in the right hilum, measuring 2.1 cm, could represent pulmonary vessel en-face, however, hilar lymph node enlargement cannot be ruled out. (New finding) 3. No other significant interval change. Electronically signed by Angella Shepard 08-15-2024 02:22 AM
--- NOTE | 2024-08-15 02:33 | Emergency Department Note ---
Impression & Plan Sepsis, Acute UTI, Weakness, Fever, Influenza A, RLL pneumonia, Fall ED Provider Note NAME: ROSE MCCOY AGE: 73 SEX: F : 1950 ARRIVES VIA: Ambulance INFORMANT: Patient, EMS report ED PROVIDER(S): Lio Burt MD CHIEF COMPLAINT: Weakness, fall MEDICAL DECISION MAKING: Patient presents for the above. IV was established and blood work was obtained. Patient was noted to be febrile. Patient was ordered empiric Rocephin and IV fluids as well as IV Ofirmev. Patient was ordered 30 cc/kg bolus in light of fever tachycardia and concern for possible UTI. Patient's blood work shows normal white count H&H and platelet count. The patient's kidney function is unremarkable. BSG 177. Urinalysis does show concern for infection. Patient also flu a positive and chest x-ray may show developing right lower lobe pneumonia. The patient did receive IV Rocephin and p.o. Doxy. Patient did receive IV fluids. I did speak the on-call hospital service Dr. Andrea and the patient was admitted to the medicine service. Discussion w/ other healthcare providers: Dr. Andrea inpatient medicine service Prior /Outside records reviewed: I reviewed a prior discharge summary from May 05, [address] Sutton. Patient with recent COVID-19 infection subsequently developed diarrhea and associated weakness. Patient was noted to have hypotension secondary to hypovolemia and did receive IV fluids and IV antibiotics at that time. Also thought to have blood loss anemia secondary to possible duodenal ulcer. Differential diagnosis: Infection, dehydration, metabolic abnormality, hypo/hyperglycemia, electrolyte imbalance, anemia, UTI, pneumonia, thyroid dysfunction among others were considered. Diagnostics, as interpreted by me: ECG: None Cardiac monitoring: An order was placed for continuous cardiac monitoring. The monitor shows a rate of 88 with sinus rhythm. Patient was placed on pulse oximetry Medical decision rules: None Imaging studies: I informally interpreted the patient's chest x-ray with possible developing right lower lobe pneumonia with formal report to follow. HPI: Patient presents due to concern for weakness fatigue confusion and recent fall. The patient reportedly fell to her buttocks. No reported head strike or LOC. Patient reportedly was confused per daughter. Patient denies any cough or fever.Patient states that she has had associated cough and sick contacts. No chest pain or shortness of breath. No reported syncope or LOC. Patient denies any abdominal pain. Patient denies any current head or neck pain. Patient does take Plavix but no other blood thinners. PAST MEDICAL HISTORY: See Below PAST SURGICAL HISTORY: See Below SOCIAL HISTORY: See Below HOME MEDICATIONS: See Below ALLERGIES: See Below VITALS: See Below PHYSICAL EXAMINATION: GENERAL: NAD, non-toxic. Head: Normocephalic atraumatic. EYE EXAM: Normal conjunctiva. PERRL, no anisocoria and EOM's grossly intact w/o pain. OROPHARYNX: Moist mucus membranes, grossly normal dentition. NECK: Trachea midline, no stridor. No midline C-spine TTP. LUNGS: Clear to auscultation. Normal chest wall mechanics. HEART: NSR, no MRG. ABDOMEN: Abdomen soft, non-tender, no masses, no rebound or guarding. BACK: No CVA TTP. SKIN: No rashes and no bruising. UPPER EXTREMITIES: Upper extremities are grossly normal. No TTP or deformity. LOWER EXTREMITIES: Grossly normal, no edema. No TTP or deformity. NEURO EXAM: A&O x3, cranial nerves II-XII grossly intact, normal speech, moves all 4 extremities. Past Med/Surg History Problem List (Updated 08/16/24 @ 05:13 by Lio Burt MD) Fall (Acute) RLL pneumonia (Acute) Influenza A (Acute) Fever (Acute) Weakness (Acute) Acute UTI (Acute) Sepsis (Acute) Sepsis Duodenal ulcer Complaint of melena Acute blood loss anemia Acute hypotension (Acute) Lab test positive for detection of COVID-19 virus (Acute) H/O: stroke Diabetes mellitus, type 2 NIDDM DVT prophylaxis Hypotension due to hypovolemia COVID-19 (Acute) Acute dehydration (Acute) Weakness (Acute) Acute renal failure (Acute) Encounter for pre-operative examination Lab test negative for COVID-19 virus (Acute) 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 Dr. Carrasco 02/16/21 History of gynecologic surgery "infection on uterus" per pt had to clean out History of tooth extraction all top teeth Family History Other Family history non-contributory No family history of adverse response to anesthesia Social History Smoking Status: Former smoker Tobacco Type: Cigarettes packs per day: 1; Second Hand Exposure: No; Do You Dip or Chew Tobacco: No; Hx Alcohol Use: No Hx Substance Use: No Preferred Language: Lao Communication Ability: Effective Visual Impairment: Partially Limited Director Of Student Life Required: No Beliefs That Will Affect Care: None marital status: Current Living Situation: Spouse Current Living Situation Comment: Lives with and daughter current occupational status: retired How many Children do You have: 5 Other Information That Helps Us Care for You: No Feels Safe at Home: Yes Safety Concerns: Feels Safe At This Time during the past year weight has: remained stable Assistive Devices: Denture - Upper and Denture - Lower Allergies Allergies Allergy/AdvReac Type Severity Reaction Status Date / Time No Known Allergies Allergy Mild Verified 05/04/21 08:09 Home Meds Home Medications Medication Instructions Recorded Confirmed amlodipine 2.5 mg tablet 2.5 mg PO [facility] 01/12/21 08/15/24 atorvastatin 40 mg tablet 40 mg PO HS 01/12/21 08/15/24 clopidogrel 75 mg tablet 75 mg PO QAM 01/12/21 08/15/24 hydralazine 50 mg tablet 50 mg PO TID 01/12/21 08/15/24 metoprolol tartrate 50 mg tablet 50 mg PO [facility] 01/12/21 08/15/24 lisinopril 20 mg tablet 20 mg PO BID 02/11/21 08/15/24 metformin 500 mg tablet,extended 1,000 mg PO [facility] 08/15/24 08/15/24 release 24 hr Results & Data (ED) Vital Signs Vital Signs - 24 hr 08/15/24 01:22 08/15/24 01:23 08/15/24 02:07 Temperature 39.0 C H Temperature Source Oral Pulse Rate 107 H 94 H Pulse Rate [Apical] Pulse Rhythm Regular Pulse Rhythm [Apical] Pulse Strength Normal Pulse Strength [Apical] Respiratory Rate 24 Respiratory Effort / Characteristics Non-Labored Respiratory Depth Normal Respiratory Pattern Regular Blood Pressure 146/107 H Blood Pressure [Right Arm] Blood Pressure Mean 120 Blood Pressure Mean [Right Arm] Blood Pressure Position Sitting Blood Pressure Position [Right Arm] Pulse Oximetry 90 92 Oxygen Delivery Method Room Air Room Air Sepsis Recent Fever Within 48 Hours No Sepsis New/Unexplained Change in Mental Status Yes Sepsis Action Taken by Nursing No Action Required 08/15/24 02:07 08/15/24 02:07 Temperature 39.0 C H Temperature Source Oral Pulse Rate 83 Pulse Rate [Apical] 86 Pulse Rhythm Regular Pulse Rhythm [Apical] Regular Pulse Strength Pulse Strength [Apical] Normal Respiratory Rate 18 18 Respiratory Effort / Characteristics Non-Labored Respiratory Depth Normal Respiratory Pattern Regular Blood Pressure Blood Pressure [Right Arm] 142/84 H Blood Pressure Mean Blood Pressure Mean [Right Arm] 103 Blood Pressure Position Blood Pressure Position [Right Arm] Lying Pulse Oximetry 92 92 Oxygen Delivery Method Room Air Room Air Sepsis Recent Fever Within 48 Hours Sepsis New/Unexplained Change in Mental Status Sepsis Action Taken by [facility] Medications Current Medication List: was personally reviewed by me Laboratory Data Attestation: I reviewed the patient's lab results. 08/15/24 01:34 08/15/24 01:34 Lab Results 08/15/24 Range/Units 01:34 WBC 8.32 (4.8-10.8) K/ul RBC 4.54 (4.20-5.40) M/uL Hgb 13.3 (12.0-16.0) g/dl Hct 39.8 (37.0-47.0) % MCV 87.7 (80.0-100.0) fL MCH 29.3 (25.0-34.0) pg MCHC 33.4 (32.0-36.0) g/dL RDW Std Deviation 43.3 (36.4-46.3) fL RDW Coeff of Mario 13.4 (11.5-14.5) % Plt Count 150 (130-400) K/uL MPV 12.5 H (9.4-12.4) fL Immature Gran % (Auto) 0.4 % Neut % (Auto) 87.5 % Lymph % (Auto) 8.5 % Mills % (Auto) 3.4 % Eos % (Auto) 0.0 % Baso % (Auto) 0.2 % Neut # (Auto) 7.28 H (1.40-6.50) K/uL Lymph # (Auto) 0.71 L (1.20-3.40) K/uL Mills # (Auto) 0.28 (0.11-0.59) K/uL Eos # (Auto) 0.00 (0.00-0.50) K/uL Baso # (Auto) 0.02 (0.00-0.20) K/uL Immature Gran # (Auto) 0.03 (0.01-0.20) K/uL Sodium 134 L (136-145) mmol/L Potassium 3.3 L (3.5-5.1) mmol/L Chloride 99 (98-107) mmol/L Carbon Dioxide 26 (21-32) mmol/L Anion Gap 9 (3-11) BUN 11 (6-23) mg/dl Creatinine 0.69 (0.6-1.2) mg/dl Est Cr Clr Drug Dosing 65.3 ml/min eGFR 91.58 BUN/Creatinine Ratio 15.9 (10-20) Glucose 177 H (70-99(Fasting)) mg/dl Calcium 9.1 (8.6-10.3) mg/dl Magnesium 1.3 L (1.7-2.4) mg/dl Total Bilirubin 0.8 (0.2-1.0) mg/dl AST 13 (13-39) U/L ALT 10 (7-52) U/L Alkaline Phosphatase 49 (34-104) U/L Total Protein 6.5 (6.0-8.3) gm/dl Albumin 4.1 (3.4-5.0) gm/dl Globulin 2.4 L (2.5-4.0) gm/dl Albumin/Globulin Ratio 1.7 (0.9-2) TSH 0.533 (0.300-4.500) uIu/ml Urine Color Yellow Urine Appearance Clear (Clear) Urine pH 7.5 (4.5-7.5) Ur Specific [place] 1.013 (1.000-1.030) Urine Protein 3+ H (Negative) Urine Glucose (UA) Trace H (Negative) Urine Ketones Negative (Negative) Urine Blood 2+ H (Negative) Urine Nitrite Positive A (Negative) Urine Bilirubin Negative (Negative) Urine Urobilinogen Negative (Negative) Ur Leukocyte Esterase Trace H (Negative) Urine WBC (Auto) 21-50 H (0-5) /hpf Urine RBC (Auto) >20 H (0-2) /hpf U Hyaline Cast (Auto) 0-2 (0-2) /lpf U Epithel Cells (Auto) 0-2 (0-2) /hpf Urine Bacteria (Auto) 4+ H (None Seen) Nasal Influ A H1 2008 PCR DETECTED A (NotDetected) Adenovirus (PCR) Not Detected (NotDetected) B. pertussis DNA (PCR) Not Detected (NotDetected) B.parapertussis DNA PCR Not Detected (NotDetected) C. pneumoniae DNA (PCR) Not Detected (NotDetected) Coronavirus OC43 (PCR) Not Detected (NotDetected) Coronavirus HKU1 (PCR) Not Detected (NotDetected) Coronavirus 229E (PCR) Not Detected (NotDetected) SARS-CoV-2 (PCR) Not Detected (NotDetected) Coronavirus NL63 (PCR) Not Detected (NotDetected) Human Metapneumovir PCR Not Detected (NotDetected) Influenza Type B (PCR) Not Detected (NotDetected) M. pneumoniae (PCR) Not Detected (NotDetected) Parainfluenza 1 (PCR) Not Detected (NotDetected) Parainfluenza 2 (PCR) Not Detected (NotDetected) Parainfluenza 3 (PCR) Not Detected (NotDetected) Parainfluenza 4 (PCR) Not Detected (NotDetected) RSV (PCR) Not Detected (NotDetected) Entero/Rhino (PCR) Not Detected (NotDetected) Administered Medications Acetaminophen (Acetaminophen 325 Mg Tab) 650 mg PO QID PRN PRN Reason: pain/fever Stop: 09/14/24 03:52 Last Admin: 08/15/24 20:03 Dose: 650 mg Documented By: Admin: 08/15/24 11:17 Dose: 650 mg Documented By: LINDEN Amlodipine Besylate (Amlodipine Besylate 5 Mg Tab) 2.5 mg PO [facility] Stop: 09/14/24 08:59 Last Admin: 08/15/24 20:06 Dose: 2.5 mg Documented By: Admin: 08/15/24 08:11 Dose: 2.5 mg Documented By: LINDEN Atorvastatin Calcium (Atorvastatin 40 Mg Tab) 40 mg PO HS [facility] Stop: 09/14/24 20:59 Last Admin: 08/15/24 20:06 Dose: 40 mg Documented By: NICK Azithromycin (Azithromycin 250 Mg Tab) 500 mg PO [facility] Stop: 08/18/24 09:44 Last Admin: 08/15/24 11:17 Dose: 500 mg Documented By: LINDEN Clopidogrel Bisulfate (Clopidogrel Bisulfate 75 Mg Tab) 75 mg PO [facility] Stop: 09/14/24 08:59 Last Admin: 08/15/24 08:11 Dose: 75 mg Documented By: LINDEN Enoxaparin Sodium (Enoxaparin Inj 40 Mg/0.4 Ml Syr) 40 mg SQ [facility] Stop: 09/14/24 08:59 Last Admin: 08/15/24 08:09 Dose: 40 mg Documented By: LINDEN Hydralazine HCl (Hydralazine Tab 50 Mg Tab) 50 mg PO TID [facility] Stop: 09/14/24 08:59 Last Admin: 08/15/24 20:08 Dose: 50 mg Documented By: Admin: 08/15/24 13:08 Dose: 50 mg Documented By: Admin: 08/15/24 08:13 Dose: 50 mg Documented By: LINDEN Cefepime HCl (Maxipime 2000mg) 2,000 mg in 20 mls @ 5 mls/min IV Q8H [facility]; Protocol Stop: 08/25/24 04:59 Last Admin: 08/16/24 04:22 Dose: 5 mls/min Documented By: Admin: 08/15/24 20:03 Dose: 5 mls/min Documented By: Admin: 08/15/24 13:03 Dose: 5 mls/min Documented By: LINDEN Insulin Aspart (Insulin Aspart Per Unit Charge) 0 units SC [facility] Stop: 09/14/24 06:27 Last Admin: 08/15/24 20:09 Dose: Not Given Documented By: Admin: 08/15/24 17:41 Dose: Not Given Documented By: Admin: 08/15/24 13:00 Dose: Not Given Documented By: Admin: 08/15/24 09:21 Dose: 1 units Documented By: LINDEN Co-signed By: LEOBARDO Lisinopril (Lisinopril 20 Mg Tab) 20 mg PO BID [facility] Stop: 09/14/24 08:59 Last Admin: 08/15/24 20:05 Dose: 20 mg Documented By: Admin: 08/15/24 08:12 Dose: 20 mg Documented By: LINDEN Metoprolol Tartrate (Metoprolol Tartrate 50 Mg Tab) 50 mg PO AMHS [facility] Stop: 09/14/24 08:59 Last Admin: 08/15/24 20:05 Dose: 50 mg Documented By: Admin: 08/15/24 08:12 Dose: 50 mg Documented By: LINDEN Oseltamivir Phosphate (Oseltamivir Phosphate 75 Mg Cap) 75 mg PO BID [facility]; Protocol Stop: 08/20/24 09:29 Last Admin: 08/15/24 20:04 Dose: 75 mg Documented By: Admin: 08/15/24 11:17 Dose: 75 mg Documented By: LINDEN Potassium Chloride (Potassium Chloride Crtab 20 Meq Tabcr) 20 meq PO BID [facility] Stop: 09/14/24 12:59 Last Admin: 08/15/24 20:12 Dose: 20 meq Documented By: Admin: 08/15/24 13:07 Dose: 20 meq Documented By: LINDEN Discontinued Medications Albuterol (Albut/Ipratrop 3mg/0.5mg Neb 3 Ml Vial) 3 ml NEB NOW STA; Protocol Stop: 08/15/24 04:40 Last Admin: 08/15/24 04:59 Dose: 3 ml Documented By: SHARMIN Doxycycline Hyclate (Doxycycline Hyclate 100 Mg Cap) 100 mg PO NOW STA Stop: 08/15/24 03:11 Last Admin: 08/15/24 04:01 Dose: 100 mg Documented By: SHARMIN Sodium Chloride (Nss) 500 mls @ 999 mls/hr IV .Q31M ONE Stop: 08/15/24 01:55 Last Infusion: 08/15/24 03:22 Dose: Infused Documented By: Admin: 08/15/24 02:03 Dose: 999 mls/hr Documented By: SHARMIN Acetaminophen (Ofirmev) 1,000 mg in 100 mls @ 400 mls/hr IV NOW STA Stop: 08/15/24 02:31 Last Infusion: 08/15/24 03:21 Dose: Infused Documented By: Admin: 08/15/24 02:34 Dose: 400 mls/hr Documented By: SHARMIN Sodium Chloride (Nss) 1,000 mls @ 999 mls/hr IV .Q1H1M ONE Stop: 08/15/24 03:17 Last Infusion: 08/15/24 03:51 Dose: Infused Documented By: Admin: 08/15/24 02:35 Dose: 999 mls/hr Documented By: SHARMIN Ceftriaxone Sodium (Rocephin) 2,000 mg in 50 mls @ 100 mls/hr IV NOW STA Stop: 08/15/24 02:46 Last Infusion: 08/15/24 03:22 Dose: Infused Documented By: Admin: 08/15/24 02:35 Dose: 100 mls/hr Documented By: SHARMIN Sodium Chloride (Nss) 500 mls @ 999 mls/hr IV .Q31M ONE Stop: 08/15/24 02:47 Last Infusion: 08/15/24 03:22 Dose: Infused Documented By: Admin: 08/15/24 02:35 Dose: 999 mls/hr Documented By: SHARMIN Magnesium Sulfate/Dextrose (Magnesium Sulfate / D5w) 1 gm in 100 mls @ 50 mls/hr IV Q2H [facility] Stop: 08/15/24 09:14 Last Infusion: 08/15/24 09:36 Dose: Infused Documented By: Admin: 08/15/24 06:30 Dose: 50 mls/hr Documented By: Infusion: 08/15/24 06:30 Dose: Infused Documented By: Admin: 08/15/24 04:59 Dose: 50 mls/hr Documented By: Infusion: 08/15/24 04:59 Dose: Infused Documented By: Admin: 08/15/24 04:02 Dose: 50 mls/hr Documented By: SHARMIN Cefepime HCl (Maxipime 2000mg) 2,000 mg in 20 mls @ 5 mls/min IV ONE ONE; Protocol Stop: 08/15/24 04:48 Last Admin: 08/15/24 04:59 Dose: 5 mls/min Documented By: SHARMIN Influenza Virus Vacc Triv Types A&B (Influenza Vacc [id number](65y+)/Pf (Iiv3) 0.5ml Syr) 0.5 ml IM .ONCE ONE Stop: 08/15/24 06:53 Last Admin: 08/15/24 08:18 Dose: 0.5 ml Documented By: LINDEN Pneumococcal 20-Valent Conj Vacc (Pneumococcal Vaccine (Pcv20) 20-Dede Conj-Dip Crm/Pf 0.5 Ml Syr) 0.5 ml IM .ONCE ONE Stop: 08/15/24 06:53 Last Admin: 08/15/24 08:15 Dose: 0.5 ml Documented By: LINDEN Potassium Chloride (Potassium Chloride Crtab 20 Meq Tabcr) 40 meq PO NOW STA Stop: 08/15/24 03:08 Last Admin: 08/15/24 04:01 Dose: 40 meq Documented By: SHARMIN Imaging Data Radiologist's Impression: Chest X-Ray 08/15/24 01:25 EXAM: XR chest 1V portable CLINICAL HISTORY: WEAKNESS JM TECHNIQUE: An X-ray image of the chest is obtained in AP projection. COMPARISON: 04/29/2021 FINDINGS: Pulmonary Parenchyma: Prominent bronchovascular markings with mild peribronchial thickening is noted in the right lower zone with suspicion of patchy faint opacities. Nearly stable nodular opacity at the left mid zone, measuring 4.3 mm. Nodular opacity at the right hilum, measuring 2.1 cm. The right costophrenic angle is not included in the available image. Clear left costophrenic angle. Heart and Mediastinum: Unremarkable heart size foramen AP projection. No mediastinal widening or mediastinal masses. Bony Thorax: Diffuse decreased bone density with degenerative changes of the visualized skeleton. Soft Tissues: Soft tissues overlying the chest wall are unremarkable. IMPRESSION: 1. Prominent bronchovascular markings with mild peribronchial thickening and suspected patchy opacities in the right lower zone. Clinical correlation is advised to assess for bronchitis with suspicion of pneumonic infiltrates. (More conspicuous on the present study) 2. Nodular opacity in the right hilum, measuring 2.1 cm, could represent pulmonary vessel en-face, however, hilar lymph node enlargement cannot be ruled out. (New finding) 3. No other significant interval change. Electronically signed by Angella Shepard 08-15-2024 02:22 AM Discharge Plan Visit Data Chief Complaint: Confusion Stated Complaint: CONFUSION, FELL ON TO BUTT, ON BLOOD THINNERS ED Provider: Lio Burt Discharge Problem: Sepsis, Acute UTI, Weakness, Fever, Influenza A, RLL pneumonia, Fall Patient Disposition: Admitted As Inpatient Discharge Instructions Interventions: ED Discharge Assessment Last Done: 08/15/24 05:48 Discharge Problem: Sepsis Qualifiers: Sepsis type: sepsis due to unspecified organism Sepsis acute organ dysfunction status: unspecified Qualified Code(s): A41.9 - Sepsis, unspecified organism Fever Qualifiers: Fever type: due to other condition Qualified Code(s): R50.81 - Fever presenting with conditions classified elsewhere RLL pneumonia Qualifiers: Pneumonia type: due to unspecified organism Qualified Code(s): J18.9 - Pneumonia, unspecified organism Fall Qualifiers: Encounter type: initial encounter Qualified Code(s): W19.XXXA - Unspecified fall, initial encounter
[2024-08-15] MEDS: ACETAMINOPHEN 1,000 MG/100 ML VIAL IV STA (02:34)
[2024-08-15 02:35] LABS: Thyroid Stimulating Hormone 0.533 uIu/ml (0.300-4.500)
[2024-08-15] MEDS: SODIUM CHLORIDE 0.9% 1,000 ML IV ONE (02:35)
[2024-08-15] MEDS: cefTRIAXone SODIUM 2,000 MG/50 ML BAG IV STA (02:35)
[2024-08-15 02:53] LABS: Adenovirus PCR Not Detected (NotDetected); Bordetella parapertussis PCR Not Detected (NotDetected); Bordetella pertussis PCR Not Detected (NotDetected); Chlamydia pneumoniae PCR Not Detected (NotDetected); Coronavirus 229E PCR Not Detected (NotDetected); Coronavirus CoV-2 (COVID19)PCR Not Detected (NotDetected); Coronavirus HKU1 PCR Not Detected (NotDetected); Coronavirus NL63 PCR Not Detected (NotDetected); Coronavirus OC43PCR Not Detected (NotDetected); Human Metapneumovirus PCR Not Detected (NotDetected); Influenza A (H1 2009) PCR DETECTED (NotDetected); Influenza B PCR Not Detected (NotDetected); Mycoplasma pneumoniae PCR Not Detected (NotDetected); Parainfluenza Virus 1 PCR Not Detected (NotDetected); Parainfluenza Virus 2 PCR Not Detected (NotDetected); Parainfluenza Virus 3 PCR Not Detected (NotDetected); Parainfluenza Virus 4 PCR Not Detected (NotDetected); Respiratory Syncytial VirusPCR Not Detected (NotDetected); Rhinovirus/Enterovirus PCR Not Detected (NotDetected)
--- NOTE | 2024-08-15 03:08 | CT Scan Report ---
EXAM: CT head/brain wo con CLINICAL HISTORY: confusion TECHNIQUE: Multiple axial images are obtained from the skull base to the vertex without contrast. CT scan was performed according to ALARA (as low as reasonable achievable). COMPARISON: None. FINDINGS: Focal encephalomalacia is noted involving right parietal region. Causing ex vacuo dilatation of adjacent right lateral ventricle. There is cerebral atrophy. No evidence of space occupying lesion, hemorrhage, edema, mass effect, midline shift, extra axial collection, or hydrocephalus is noted. Basal cisterns are symmetric and normal in size and configuration. There are scattered periventricular hypodensities as can be seen with chronic microvascular ischemic changes. The wilkes-white matter differentiation is preserved. Visualized paranasal sinuses and mastoid air cells are well aerated. Orbital contents are within normal limits. Bony structures are intact. IMPRESSION: 1. No evidence of acute intracranial abnormality is demonstrated. 2. Chronic microvascular ischemic changes. 3. Cerebral atrophy. 4. Focal encephalomalacia is noted involving right parietal region.- sequelae of previous insult Electronically signed by Scott López 08-15-2024 03:08 AM
--- NOTE | 2024-08-15 03:18 | History & Physical Report ---
Date of Service August 15, 2024 Assessment & Plan (1) Sepsis: Plan: Multifactorial Community-acquired pneumonia Complicated UTI hypertension, slightly elevated secondary illness hyperlipidemia, on statin Rx hx CVA DM2 on oral medications, well-controlled as of recent hemoglobin A1c of 5.7 last year meningioma status post surgery Hypokalemia, hypomagnesemia secondary to illness past tobacco abuse Med/tele CS, cefepime and doxycycline Replace electrolytes ISS BG goal 1 10-1 40, carb count coverage PT OT eval DVT prophylaxis. Lovenox subcu DNR as per patient prior directives as per daughter, Ms. Graciela West. She requests updates providers thru [id number]. Text document was generated using [employer] voice recognition software. It may contain grammatical or spelling errors. Kindly contact undersigned for clarification of any documentation item in question. History of Present Illness Chief Complaint: Fall, weakness, fever Primary Care Provider: Lio Jade MD History obtained from patient, family, and records. Medical history significant for hypertension, hyperlipidemia, CVA, DM2 on oral medications, PUD, meningioma status post surgery, past tobacco abuse. Last confinement 2020 for hypotension secondary to hypovolemia secondary to UGIB. Nonbleeding duodenal ulcer on EGD. Patient discharged on Protonix course. Patient with cough symptoms productive of foamy white sputum last few days. Not sure about sick contacts. Denies chest pain, SOB. Patient not getting up from the couch yesterday as per daughter. Noted to be febrile at home. Home COVID-19 test was negative. Increased urinary frequency. Denies abdominal or flank pain or hematuria. Witnessed fall at home in the bathroom from weakness. No syncope, no LOC. Bilious emesis at home mixed with red V8 juice which patient earlier drank as per daughter. No aspiration concerns at home as per daughter. Patient brought to the ER for evaluation. Ceftriaxone and doxycycline administered at the ER. Medical History as above Surgical History : Craniectomy Family History : Diabetes Personal/Social history : Past tobacco abuse, no EtOH intake, retired from factory work, originally from [place] Allergies Allergy/AdvReac Type Severity Reaction Status Date / Time No Known Allergies Allergy Mild Verified 05/04/21 08:09 Home Medications Medication Instructions Recorded Confirmed Type amlodipine 2.5 mg tablet 2.5 mg PO AMHS 01/12/21 08/15/24 History atorvastatin 40 mg tablet 40 mg PO HS 01/12/21 08/15/24 History clopidogrel 75 mg tablet 75 mg PO QAM 01/12/21 08/15/24 History hydralazine 50 mg tablet 50 mg PO TID 01/12/21 08/15/24 History metoprolol tartrate 50 mg tablet 50 mg PO AMHS 01/12/21 08/15/24 History lisinopril 20 mg tablet 20 mg PO BID 02/11/21 08/15/24 History metformin 500 mg tablet,extended 1,000 mg PO AMHS 08/15/24 08/15/24 History release 24 hr Past Med/Surg History Problem List (Updated 08/15/24 @ 04:41 by Miguel Ángel Andrae MD) Sepsis Duodenal ulcer Complaint of melena Acute blood loss anemia Acute hypotension (Acute) Lab test positive for detection of COVID-19 virus (Acute) H/O: stroke Diabetes mellitus, type 2 NIDDM DVT prophylaxis Hypotension due to hypovolemia COVID-19 (Acute) Acute dehydration (Acute) Weakness (Acute) Acute renal failure (Acute) Encounter for pre-operative examination Lab test negative for COVID-19 virus (Acute) 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 Periodontal disease Loose, teeth HTN (hypertension) (Chronic) Hypertensive urgency Medical History Diabetes mellitus, type 2 NIDDM History of gastric ulcer HTN (hypertension) Hyperlipidemia On anticoagulant therapy on plavix daily Stroke 2015--d/t high bp/blood clot--no deficits--follows with PCP only, no neurologist--reason for plavix Surgical History History of gynecologic surgery "infection on uterus" per pt had to clean out History of tooth extraction all top teeth Hx of oral surgery Removal of Exposed Bone of Anterior Mandible from recent facial Infection; Removal of Teeth #,20, 23, 24, 25, 26, 27 and 28 primary closure from advancement flap to obtain closure over exposed bone. Dr. Carrasco 02/16/21 Family History Other Family history non-contributory No family history of adverse response to anesthesia Social History Smoking Status: Former smoker Tobacco Type: Cigarettes packs per day: 1; Second Hand Exposure: No; Do You Dip or Chew Tobacco: No; Hx Alcohol Use: No Hx Substance Use: No Preferred Language: Nepalese Communication Ability: Effective Visual Impairment: Partially Limited Renal Dialysis Technician Required: No Beliefs That Will Affect Care: None marital status: Current Living Situation: Spouse Current Living Situation Comment: Lives with and daughter current occupational status: retired How many Children do You have: 5 Feels Safe at Home: Yes during the past year weight has: remained stable Assistive Devices: None Review of Systems Review of Systems: As per HPI, all other systems reviewed and negative Physical Exam Physical Exam: GENERAL: Slightly uncomfortable, ill-appearing, no respiratory distress SKIN: Normal color, warm HEENT: [place] palpebral conjunctivae, no ptosis, dry buccal mucosa NECK : Supple, no tenderness CHEST : Decreased breath sounds with scattered expiratory wheezes on the right lower lung field, no tenderness HEART : RRR, no obvious murmurs ABDOMEN: Some distention, nontender EXTREMITIES : No LE swelling/tenderness, no other conspicuous deformities noted NEUROLOGIC : Coherent, no facial asymmetry, gait and stance not assessed Results & Data Results & Data Vital Signs (Past 12 Hours) Vital Signs Temp Pulse Pulse Resp BP BP Pulse Ox 08/15/24 02:07 83 18 92 08/15/24 02:07 39.0 C H 86 18 142/84 H 92 08/15/24 02:07 92 08/15/24 01:23 39.0 C H 94 H 24 146/107 H 90 08/15/24 01:22 107 H O2 Del Method 08/15/24 02:07 Room Air 08/15/24 02:07 Room Air 08/15/24 02:07 Room Air 08/15/24 01:23 Room Air 08/15/24 01:22 Laboratory Results Laboratory Results WBC 8.32 K/ul (4.8-10.8) 08/15/24 01:34 RBC 4.54 M/uL (4.20-5.40) 08/15/24 01:34 Hgb 13.3 g/dl (12.0-16.0) 08/15/24 01:34 Hct 39.8 % (37.0-47.0) 08/15/24 01:34 MCV 87.7 fL (80.0-100.0) 08/15/24 01:34 MCH 29.3 pg (25.0-34.0) 08/15/24 01:34 MCHC 33.4 g/dL (32.0-36.0) 08/15/24 01:34 RDW Std Deviation 43.3 fL (36.4-46.3) 08/15/24:34 RDW Coeff of Mario 13.4 % (11.5-14.5) 08/15/24 01:34 Plt Count 150 K/uL (130-400) 08/15/24 01:34 MPV 12.5 fL (9.4-12.4) H 08/15/24 01:34 Immature Gran % (Auto) 0.4 % 08/15/24 01:34 Neut % (Auto) 87.5 % 08/15/24 01:34 Lymph % (Auto) 8.5 % 08/15/24 01:34 [place] % (Auto) 3.4 % 08/15/24 01:34 Eos % (Auto) 0.0 % 08/15/24 01:34 Baso % (Auto) 0.2 % 08/15/24 01:34 Neut # (Auto) 7.28 K/uL (1.40-6.50) H 08/15/24 01:34 Lymph # (Auto) 0.71 K/uL (1.20-3.40) L 08/15/24 01:34 [place] # (Auto) 0.28 K/uL (0.11-0.59) 08/15/24 01:34 Eos # (Auto) 0.00 K/uL (0.00-0.50) 08/15/24 01:34 Baso # (Auto) 0.02 K/uL (0.00-0.20) 08/15/24 01:34 Immature Gran # (Auto) 0.03 K/uL (0.01-0.20) 08/15/24 01:34 Sodium 134 mmol/L (136-145) L 08/15/24 01:34 Potassium 3.3 mmol/L (3.5-5.1) L 08/15/24 01:34 Chloride 99 mmol/L (98-107) 08/15/24 01:34 Carbon Dioxide 26 mmol/L (21-32) 08/15/24 01:34 Anion Gap 9 (3-11) 08/15/24 01:34 BUN 11 mg/dl (6-23) 08/15/24 01:34 Creatinine 0.69 mg/dl (0.6-1.2) 08/15/24 01:34 Est Cr Clr Drug Dosing 65.3 ml/min 08/15/24 01:34 eGFR 91.58 08/15/24 01:34 BUN/Creatinine Ratio 15.9 (10-20) 08/15/24 01:34 Glucose 177 mg/dl (70-99(Fasting)) H 08/15/24 01:34 Calcium 9.1 mg/dl (8.6-10.3) 08/15/24 01:34 Magnesium 1.3 mg/dl (1.7-2.4) L 08/15/24 01:34 Total Bilirubin 0.8 mg/dl (0.2-1.0) 08/15/24 01:34 AST 13 U/L (13-39) 08/15/24 01:34 ALT 10 U/L (7-52) 08/15/24 01:34 Alkaline Phosphatase 49 U/L (34-104) 08/15/24 01:34 Total Protein 6.5 gm/dl (6.0-8.3) 08/15/24 01:34 Albumin 4.1 gm/dl (3.4-5.0) 08/15/24 01:34 Globulin 2.4 gm/dl (2.5-4.0) L 08/15/24 01:34 Albumin/Globulin Ratio 1.7 (0.9-2) 08/15/24 01:34 TSH 0.533 uIu/ml (0.300-4.500) 08/15/24 01:34 Urine Color Yellow 08/15/24 01:34 Urine Appearance Clear (Clear) 08/15/24 01:34 Urine pH 7.5 (4.5-7.5) 08/15/24 01:34 Ur Specific [place] 1.013 (1.000-1.030) 08/15/24 01:34 Urine Protein 3+ (Negative) H 08/15/24 01:34 Urine Glucose (UA) Trace (Negative) H 08/15/24 01:34 Urine Ketones Negative (Negative) 08/15/24 01:34 Urine Blood 2+ (Negative) H 08/15/24 01:34 Urine Nitrite Positive (Negative) A 08/15/24 01:34 Urine Bilirubin Negative (Negative) 08/15/24 01:34 Urine Urobilinogen Negative (Negative) 08/15/24 01:34 Ur Leukocyte Esterase Trace (Negative) H 08/15/24 01:34 Urine WBC (Auto) 21-50 /hpf (0-5) H 08/15/24 01:34 Urine RBC (Auto) >20 /hpf (0-2) H 08/15/24 01:34 U Hyaline Cast (Auto) 0-2 /lpf (0-2) 08/15/24 01:34 U Epithel Cells (Auto) 0-2 /hpf (0-2) 08/15/24 01:34 Urine Bacteria (Auto) 4+ (None Seen) H 08/15/24 01:34 Nasal Influ A H1 2008 PCR DETECTED (NotDetected) A 08/15/24 01:34 Adenovirus (PCR) Not Detected (NotDetected) 08/15/24 01:34 B. pertussis DNA (PCR) Not Detected (NotDetected) 08/15/24 01:34 B.parapertussis DNA PCR Not Detected (NotDetected) 08/15/24 01:34 C. pneumoniae DNA (PCR) Not Detected (NotDetected) 08/15/24 01:34 Coronavirus OC43 (PCR) Not Detected (NotDetected) 08/15/24 01:34 Coronavirus HKU1 (PCR) Not Detected (NotDetected) 08/15/24 01:34 Coronavirus 229E (PCR) Not Detected (NotDetected) 08/15/24 01:34 SARS-CoV-2 (PCR) Not Detected (NotDetected) 08/15/24 01:34 Coronavirus NL63 (PCR) Not Detected (NotDetected) 08/15/24 01:34 Human Metapneumovir PCR Not Detected (NotDetected) 08/15/24 01:34 Influenza Type B (PCR) Not Detected (NotDetected) 08/15/24 01:34 M. pneumoniae (PCR) Not Detected (NotDetected) 08/15/24 01:34 Parainfluenza 1 (PCR) Not Detected (NotDetected) 08/15/24 01:34 Parainfluenza 2 (PCR) Not Detected (NotDetected) 08/15/24 01:34 Parainfluenza 3 (PCR) Not Detected (NotDetected) 08/15/24 01:34 Parainfluenza 4 (PCR) Not Detected (NotDetected) 08/15/24 01:34 RSV (PCR) Not Detected (NotDetected) 08/15/24 01:34 Entero/Rhino (PCR) Not Detected (NotDetected) 08/15/24 01:34 Impressions Chest X-Ray 08/15/24 01:25 EXAM: XR chest 1V portable CLINICAL HISTORY: WEAKNESS JMF TECHNIQUE: An X-ray image of the chest is obtained in AP projection. COMPARISON: 04/29/2021 FINDINGS: Pulmonary Parenchyma: Prominent bronchovascular markings with mild peribronchial thickening is noted in the right lower zone with suspicion of patchy faint opacities. Nearly stable nodular opacity at the left mid zone, measuring 4.3 mm. Nodular opacity at the right hilum, measuring 2.1 cm. The right costophrenic angle is not included in the available image. Clear left costophrenic angle. Heart and Mediastinum: Unremarkable heart size foramen AP projection. No mediastinal widening or mediastinal masses. Bony Thorax: Diffuse decreased bone density with degenerative changes of the visualized skeleton. Soft Tissues: Soft tissues overlying the chest wall are unremarkable. IMPRESSION: 1. Prominent bronchovascular markings with mild peribronchial thickening and suspected patchy opacities in the right lower zone. Clinical correlation is advised to assess for bronchitis with suspicion of pneumonic infiltrates. (More conspicuous on the present study) 2. Nodular opacity in the right hilum, measuring 2.1 cm, could represent pulmonary vessel en-face, however, hilar lymph node enlargement cannot be ruled out. (New finding) 3. No other significant interval change. Electronically signed by Angella Shepard 08-15-2024 02:[address] 08/15/24 01:25 EXAM: CT head/brain wo con CLINICAL HISTORY: confusion TECHNIQUE: Multiple axial images are obtained from the skull base to the vertex without contrast. CT scan was performed according to ALARA (as low as reasonable achievable). COMPARISON: None. FINDINGS: Focal encephalomalacia is noted involving right parietal region. Causing ex vacuo dilatation of adjacent right lateral ventricle. There is cerebral atrophy. No evidence of space occupying lesion, hemorrhage, edema, mass effect, midline shift, extra axial collection, or hydrocephalus is noted. Basal cisterns are symmetric and normal in size and configuration. There are scattered periventricular hypodensities as can be seen with chronic microvascular ischemic changes. The wilkes-white matter differentiation is preserved. Visualized paranasal sinuses and mastoid air cells are well aerated. Orbital contents are within normal limits. Bony structures are intact. IMPRESSION: 1. No evidence of acute intracranial abnormality is demonstrated. 2. Chronic microvascular ischemic changes. 3. Cerebral atrophy. 4. Focal encephalomalacia is noted involving right parietal region.- sequelae of previous insult Electronically signed by Scott López 08-15-2024 03:08 AM Diagnostic Findings EKG as per my interpretation :Rate 90, NSR, LAD, LAFB, T wave abnormalities septal leads
[2024-08-15] MEDS ORDERED: PROMETHAZINE 6.25 MG/50.25 ML BAG IV PRN (03:53)
[2024-08-15] MEDS: POTASSIUM CHLORIDE CRTAB 20 MEQ TABCR PO STA (04:01)
[2024-08-15] MEDS: DOXYCYCLINE HYCLATE 100 MG CAP PO STA (04:01)
[2024-08-15] MEDS: MAGNESIUM SULFATE / D5W 1 GM/100 ML BAG IV SCH (04:02)
[2024-08-15] MEDS: CEFEPIME 2000MG 2,000 MG/20 ML SYR IV ONE (04:59)
[2024-08-15] MEDS: ALBUT/IPRATROP 3MG/0.5MG NEB 3 ML VIAL NEB STA (04:59)
[2024-08-15] MEDS ORDERED: CARBOHYDRATES FOR HYPOGLYCEMIA PO PRN (06:28)
[2024-08-15] MEDS ORDERED: GLUCOSE 40% GEL 15 GM TUBE PO PRN (06:28)
[2024-08-15] MEDS ORDERED: GLUCOSE 10 TAB/TUBE PO PRN (06:28)
[2024-08-15] MEDS ORDERED: DEXTROSE 50% 50 ML SYRINGE IV PRN (06:28)
[2024-08-15] MEDS ORDERED: GLUCAGON FOR INJ 1 MG VIAL SQ PRN (06:28)
[2024-08-15] MEDS: ENOXAPARIN INJ 40 MG/0.4 ML SYR SQ SCH (08:09)
[2024-08-15] MEDS: amLODIPine BESYLATE 5 MG TAB PO SCH (08:11)
[2024-08-15] MEDS: CLOPIDOGREL BISULFATE 75 MG TAB PO SCH (08:11)
[2024-08-15] MEDS: lisinopril 20 MG TAB PO SCH (08:12)
[2024-08-15] MEDS: METOPROLOL TARTRATE 50 MG TAB PO SCH (08:12)
[2024-08-15] MEDS: hydrALAZINE TAB 50 MG TAB PO SCH (08:13)
[2024-08-15] MEDS: PNEUMOCOCCAL VACCINE (PCV20) 20-VAL CONJ-DIP CRM/PF 0.5 ML SYR IM ONE (08:15)
[2024-08-15] MEDS: INFLUENZA VACC TS2024-25(65y+)/PF (IIV3) 0.5mL Syr IM ONE (08:18)
[2024-08-15] MEDS: INSULIN ASPART PER UNIT CHARGE SC SCH (09:21)
--- NOTE | 2024-08-15 09:23 | Hospitalist Progress Note ---
Date of Service August 15, 2024 Assessment & Plan (1) Sepsis: Plan Patient is a 73-year-old female with past medical history of hypertension, hyperlipidemia, CVA, type 2 diabetes mellitus, peptic ulcer disease, meningioma status postsurgery, past tobacco use presented to the hospital with cough with white of sputum. She is being managed for following conditions; Sepsis POA Likely secondary to UTI Influenza A Possible pneumonia Patient presented with fever, cough Urinalysis suggestive of infection Flu PCR positive Chest x-ray on admission shows patchy to opacities in right lower zone. Nodular opacity in right hilum. CT headno acute finding CT chest shows faint tree-in- bud nodularity in LLL. Continue on cefepime and azithromycin. Started on Tamiflu as well Follow-up on urine culture/blood culture Chronic conditions; Hypertensioncontinue on amlodipine, lisinopril and hydralazine, metoprolol Hyperlipidemiacontinue on statin History of CVAcontinue on Plavix and Lipitor Type 2 diabetes mellitus -sliding scale insulin while inpatient. DNR/DNI DVT prophylaxis Lovenox Please note the above document was generated using voice recognition software. It may contain grammatical, syntax or spelling errors. Any formal questions or concerns about the content, text or information contained within the body of this dictation should be directly addressed to the provider for clarification Admission and Anticipated Discharge Date Admission Date: August 15, 2024 Subjective Patient seen and examined at bedside. She is comfortable; not in distress Review of Systems Review of Systems: All systems reviewed & are unremarkable except as noted in Subjective Physical Exam Physical Exam: Constitutional: WD/WN, vitals as above, NAD, sitting up in bed, pleasant, conversing easily Respiratory: bilateral occasional wheeze. Cardiovascular: RRR, no murmur, no edema Vessels: no JVD or carotid bruit Chest: normal inspection of chest Abdomen: normal bowel sounds, soft, nontender, no hepatosplenomegaly Musculoskeletal: no cyanosis or clubbing, extremities motor strength 5/5 Skin: no rashes, warm and dry normal turgor Neurologic: PERRL, EOMI, accommodation nl, no face palsy, no dysarthria CN's II- XI intact bilaterally and moves all extremities Results & Data Results & Data Vital Signs (Past 12 Hours) Vital Signs Temp Pulse Pulse Pulse Resp BP BP 08/15/24 08:00 08/15/24 07:44 36.8 C 75 16 119/68 08/15/24 06:53 08/15/24 06:40 37 C 72 20 08/15/24 05:48 38.7 C H 74 18 106/58 L 08/15/24 05:09 70 08/15/24 04:20 73 18 08/15/24 02:07 83 18 08/15/24 02:07 39.0 C H 86 18 08/15/24 02:07 08/15/24 01:23 39.0 C H 94 H 24 146/107 H 08/15/24 01:22 107 H BP Pulse Ox O2 Del Method 08/15/24 08:00 Room Air 08/15/24 07:44 93 Room Air 08/15/24 06:53 Room Air 08/15/24 06:40 100/64 91 Room Air 08/15/24 05:48 93 Room Air 08/15/24 05:09 08/15/24 04:20 146/76 H 92 Room Air 08/15/24 02:07 92 Room Air 08/15/24 02:07 142/84 H 92 Room Air 08/15/24 02:07 92 Room Air 08/15/24 01:23 90 Room Air 08/15/24 01:22
--- NOTE | 2024-08-15 10:17 | CT Scan Report ---
CT chest diagnostic wo con CLINICAL HISTORY: rule out hilar lymphadenopathy seen in cxr TECHNIQUE: Multidetector row helical CT of the chest was performed. Coronal and sagittal reformations were obtained. Automated dose lowering techniques and/or adjustment according to patient size were u tilized for this exam. CT DOSE: 256.97 mGy.cm Comparison: Comparison is made to chest radiograph 08/15/2024 FINDINGS: Lungs and pleura: Faint tree-in-bud nodularity is seen in the left lower lobe. Minimal emphysematous changes are seen. Heart and pericardium: Heart size is normal. No pericardial effusion. Vessels: Moderate atherosclerotic changes in the aorta and coronary arteries. Mediastinum and anayeli: Subcentimeter lymph nodes are seen. Chest wall and lower neck: Unremarkable. Abdomen: Unremarkable. Bones: Degenerative changes in the thoracic spine. IMPRESSION: No hilar lymphadenopathy is seen, prominence on the prior radiograph may represent vascular structure s. ACT 112: Negative or not required by law. Electronically signed by: Anderson Beckman M.D. 08/15/2024 10:15 AM
[2024-08-15] MEDS: ACETAMINOPHEN 325 MG TAB PO PRN (11:17)
[2024-08-15] MEDS: AZITHROMYCIN 250 MG TAB PO SCH (11:17)
[2024-08-15] MEDS: OSELTAMIVIR PHOSPHATE 75 MG CAP PO SCH (11:17)
[2024-08-15] MEDS: CEFEPIME 2000MG 2,000 MG/20 ML SYR IV SCH (13:03)
[2024-08-15] MEDS: POTASSIUM CHLORIDE CRTAB 20 MEQ TABCR PO SCH (13:07)
[2024-08-15] MEDS: ATORVASTATIN 40 MG TAB PO SCH (20:06)
[2024-08-15] MEDS ORDERED: DOXYCYCLINE HYCLATE 100 MG CAP PO SCH (21:00)
[2024-08-16 06:38] LABS: Basophils # (auto) 0.01 K/uL (0.00-0.20); Basophils % (auto) 0.2 %; Hematocrit (blood only) 37.7 % (37.0-47.0); Hemoglobin 12.7 g/dl (12.0-16.0); Immature Granulocytes # (auto) 0.01 K/uL (0.01-0.20); Immature Granulocytes % (auto) 0.2 %; Lymphocytes # (auto) 1.01 K/uL (1.20-3.40); Lymphocytes % (auto) 21.9 %; Mean Corpuscular Hemoglobin 29.5 pg (25.0-34.0); Mean Corpuscular Hgb Conc 33.7 g/dL (32.0-36.0); Mean Corpuscular Volume 87.7 fL (80.0-100.0); Mean Platelet Volume 12.4 fL (9.4-12.4); Monocytes # (auto) 0.23 K/uL (0.11-0.59); Neutrophils # (auto) 3.36 K/uL (1.40-6.50); Neutrophils % (auto) 72.7 %; Platelet Count 133 K/uL (130-400); RDW Coefficient of Variation 13.6 % (11.5-14.5); RDW Standard Deviation 43.7 fL (36.4-46.3); White Blood Count 4.62 K/ul (4.8-10.8)
[2024-08-16 06:58] LABS: BUN Creatinine Ratio 19.7 (10-20); Calcium 8.2 mg/dl (8.6-10.3); Creatinine Clr Calc Pharmacy 68.3 ml/min; Magnesium 1.9 mg/dl (1.7-2.4); Potassium 3.6 mmol/L (3.5-5.1)
--- NOTE | 2024-08-16 12:35 | Hospitalist Progress Note ---
Date of Service August 16, 2024 Assessment & Plan (1) Sepsis: Plan Patient is a 73-year-old female with past medical history of hypertension, hyperlipidemia, CVA, type 2 diabetes mellitus, peptic ulcer disease, meningioma status postsurgery, past tobacco use presented to the hospital with cough with white of sputum. She is being managed for following conditions; Sepsis POA Likely secondary to UTI Influenza A Possible pneumonia- ruled out Patient presented with fever, cough Urinalysis suggestive of infection; Urine culture growing E. coli Flu PCR positive Chest x-ray on admission shows patchy to opacities in right lower zone. Nodular opacity in right hilum. CT headno acute finding CT chest shows faint tree-in- bud nodularity in LLL; no consodilation. Continue on cefepime and azithromycin. Continue on Tamiflu as well Follow-up on final urine culture/blood culture Chronic conditions; Hypertensioncontinue on amlodipine, lisinopril and hydralazine, metoprolol Hyperlipidemiacontinue on statin History of CVAcontinue on Plavix and Lipitor Type 2 diabetes mellitus -sliding scale insulin while inpatient. DNR/DNI DVT prophylaxis Lovenox Time spent evaluating patient, direct bedside care, chart review, placing orders , interpretation of diagnostic studies, discussion with consultants, patient, and family members, as well as other required patient management activities is 50 minutes Please note the above document was generated using voice recognition software. It may contain grammatical, syntax or spelling errors. Any formal questions or concerns about the content, text or information contained within the body of this dictation should be directly addressed to the provider for clarification Admission and Anticipated Discharge Date Admission Date: August 15, 2024 Subjective Patient seen and examined at bedside. She reports that she is feeling overall better compared to yesterday Fever trend has slightly improved. Review of Systems Review of Systems: All systems reviewed & are unremarkable except as noted in Subjective Physical Exam Physical Exam: Constitutional: WD/WN, vitals as above, NAD, sitting up in bed, pleasant, conversing easily Respiratory: bilateral occasional wheeze. Cardiovascular: RRR, no murmur, no edema Vessels: no JVD or carotid bruit Chest: normal inspection of chest Abdomen: normal bowel sounds, soft, nontender, no hepatosplenomegaly Musculoskeletal: no cyanosis or clubbing, extremities motor strength 5/5 Skin: no rashes, warm and dry normal turgor Neurologic: PERRL, EOMI, accommodation nl, no face palsy, no dysarthria CN's II- XI intact bilaterally and moves all extremities Results & Data Results & Data Vital Signs (Past 12 Hours) Vital Signs Temp Pulse Pulse Resp BP Pulse Ox O2 Del Method 08/16/24 11:33 36.5 C 68 16 110/68 92 Room Air 08/16/24 09:29 71 08/16/24 09:06 Room Air 08/16/24 07:28 36.5 C 75 16 131/82 89 L Room Air 08/16/24 03:23 36.9 C 73 16 134/69 91 Room Air
[2024-08-16 19:50] VITALS: RESP 18
--- NOTE | 2024-08-16 22:31 | Electrocardiogram Report ---
Test Reason : Blood Pressure : */* mmHG Vent. Rate : 88 BPM Atrial Rate : 88 BPM P-R Int : 134 ms QRS Dur : 82 ms QT Int : 358 ms P-R-T Axes : 39 -36 36 degrees QTcB Int : 433 ms Normal sinus rhythm Left axis deviation Nonspecific ST abnormality Abnormal ECG When compared with ECG of 29-Apr-2021 21:04, No significant change Confirmed by Edgar Malik ([id number]) on 08/16/2024 10:31:33 PM Referred By: Confirmed By: Edgar Malik
[2024-08-17 07:22] LABS: Basophils # (auto) 0.02 K/uL (0.00-0.20); Basophils % (auto) 0.8 %; Hematocrit (blood only) 39.4 % (37.0-47.0); Immature Granulocytes # (auto) 0.01 K/uL (0.01-0.20); Immature Granulocytes % (auto) 0.4 %; Lymphocytes % (auto) 31.4 %; Mean Corpuscular Hemoglobin 28.8 pg (25.0-34.0); Mean Corpuscular Volume 87.2 fL (80.0-100.0); Mean Platelet Volume 12.3 fL (9.4-12.4); Monocytes # (auto) 0.19 K/uL (0.11-0.59); Monocytes % (auto) 7.5 %; Neutrophils # (auto) 1.53 K/uL (1.40-6.50); Neutrophils % (auto) 59.9 %; Platelet Count 133 K/uL (130-400); RDW Coefficient of Variation 13.5 % (11.5-14.5); Red Blood Count 4.52 M/uL (4.20-5.40); White Blood Count 2.55 K/ul (4.8-10.8)
[2024-08-17 07:45] LABS: BUN Creatinine Ratio 23.3 (10-20); Calcium 8.4 mg/dl (8.6-10.3); Creatinine Clr Calc Pharmacy 75.1 ml/min; Potassium 3.9 mmol/L (3.5-5.1)
--- NOTE | 2024-08-17 09:10 | Hospitalist Progress Note ---
Date of Service August 17, 2024 Assessment & Plan (1) Sepsis: Plan Patient is a 73-year-old female with past medical history of hypertension, hyperlipidemia, CVA, type 2 diabetes mellitus, peptic ulcer disease, meningioma status postsurgery, past tobacco use presented to the hospital with cough with white of sputum. She is being managed for following conditions; Sepsis POA Likely secondary to UTI Influenza A Possible pneumonia- ruled out Patient presented with fever, cough Urinalysis suggestive of infection; Urine culture growing E. coli Flu PCR positive Chest x-ray on admission shows patchy to opacities in right lower zone. Nodular opacity in right hilum. CT headno acute finding CT chest shows faint tree-in- bud nodularity in LLL; no consodilation. Urine culture was positive of E. coli; pansensitive. Patient was treated with IV antibiotics; switch to oral at discharge. She completed azithromycin course. Also on 5-day course of Tamiflu. PT OT evaluation was done; patient was recommended for rehab. Chronic conditions; Hypertensioncontinue on amlodipine, lisinopril and hydralazine, metoprolol Hyperlipidemiacontinue on statin History of CVAcontinue on Plavix and Lipitor Type 2 diabetes mellitus -sliding scale insulin while inpatient. DNR/DNI DVT prophylaxis Lovenox Time spent evaluating patient, direct bedside care, chart review, placing orders, interpretation of diagnostic studies, discussion with consultants, patient, and family members, as well as other required patient management activities is 50 minutes Please note the above document was generated using voice recognition software. It may contain grammatical, syntax or spelling errors. Any formal questions or concerns about the content, text or information contained within the body of this dictation should be directly addressed to the provider for clarification Admission and Anticipated Discharge Date Admission Date: August 15, 2024 Subjective Patient seen and examined at bedside She is comfortable; not in distress. Vital signs are stable She reports generalized fatigue. Afebrile overnight Review of Systems Review of Systems: All systems reviewed & are unremarkable except as noted in Subjective Physical Exam Physical Exam: Constitutional: WD/WN, vitals as above, NAD, sitting up in bed, pleasant, conversing easily Respiratory: bilateral occasional wheeze. Cardiovascular: RRR, no murmur, no edema Vessels: no JVD or carotid bruit Chest: normal inspection of chest Abdomen: normal bowel sounds, soft, nontender, no hepatosplenomegaly Musculoskeletal: no cyanosis or clubbing, extremities motor strength 5/5 Skin: no rashes, warm and dry normal turgor Neurologic: PERRL, EOMI, accommodation nl, no face palsy, no dysarthria CN's II- XI intact bilaterally and moves all extremities Results & Data Results & Data Vital Signs (Past 12 Hours) Vital Signs Temp Pulse Pulse Resp BP Pulse Ox O2 Del Method 08/17/24 07:26 36.6 C 88 18 121/76 91 Room Air 08/17/24 07:12 85 08/17/24 02:47 36.4 C L 81 18 116/66 91 Room Air 08/17/24 01:47 80 08/16/24 22:36 Room Air 08/16/24 22:20 36.2 C L 77 18 112/69 91 Room Air
[2024-08-17 11:02] VITALS: PULSE 68; TEMP 98.1; O2SAT 90
--- NOTE | 2024-08-17 12:36 | Discharge Summary ---
Date of Service August 17, 2024 Admission HPI Per Admitting Provider History obtained from patient, family, and records. Medical history significant for hypertension, hyperlipidemia, CVA, DM2 on oral medications, PUD, meningioma status post surgery, past tobacco abuse. Last confinement 2020 for hypotension secondary to hypovolemia secondary to UGIB. Nonbleeding duodenal ulcer on EGD. Patient discharged on Protonix course. Patient with cough symptoms productive of foamy white sputum last few days. Not sure about sick contacts. Denies chest pain, SOB. Patient not getting up from the couch yesterday as per daughter. Noted to be febrile at home. Home COVID-19 test was negative. Increased urinary frequency. Denies abdominal or flank pain or hematuria. Witnessed fall at home in the bathroom from weakness. No syncope, no LOC. Bilious emesis at home mixed with red V8 juice which patient earlier drank as per daughter. No aspiration concerns at home as per daughter. Patient brought to the ER for evaluation. Ceftriaxone and doxycycline administered at the ER. Medical History as above Surgical History : Craniectomy Family History : Diabetes Personal/Social history : Past tobacco abuse, no EtOH intake, retired from factory work, originally from [facility] Admission Exam Per Admitting Provider GENERAL: Slightly uncomfortable, ill-appearing, no respiratory distress SKIN: Normal color, warm HEENT: Protivin palpebral conjunctivae, no ptosis, dry buccal mucosa NECK : Supple, no tenderness CHEST : Decreased breath sounds with scattered expiratory wheezes on the right lower lung field, no tenderness HEART : RRR, no obvious murmurs ABDOMEN: Some distention, nontender EXTREMITIES : No LE swelling/tenderness, no other conspicuous deformities noted NEUROLOGIC : Coherent, no facial asymmetry, gait and stance not assessed Principal Diagnosis Sepsis POA Likely secondary to UTI Influenza A Possible pneumonia- ruled ou Discharge Exam Constitutional: WD/WN, vitals as above, NAD, sitting up in bed, pleasant, conversing easily Respiratory: bilateral clear breath sounds Cardiovascular: RRR, no murmur, no edema Vessels: no JVD or carotid bruit Chest: normal inspection of chest Abdomen: normal bowel sounds, soft, nontender, no hepatosplenomegaly Musculoskeletal: no cyanosis or clubbing, extremities motor strength 5/5 Skin: no rashes, warm and dry normal turgor Neurologic: PERRL, EOMI, accommodation nl, no face palsy, no dysarthria CN's II- XI intact bilaterally and moves all extremities Discharge Data Allergies Allergy/AdvReac Type Severity Reaction Status Date / Time No Known Allergies Allergy Mild Verified 05/04/21 08:09 Consultations 08/15/24 03:10 ED Decision to Admit Stat Ordered Studies 08/15/24 01:25 CT head/brain wo con Stat 08/15/24 07:38 CT chest diagnostic wo con Routine Hospital Course (1) Sepsis: Plan Patient is a 73-year-old female with past medical history of hypertension, hyperlipidemia, CVA, type 2 diabetes mellitus, peptic ulcer disease, meningioma status postsurgery, past tobacco use presented to the hospital with cough with white of sputum. She is being managed for following conditions; Sepsis POA Likely secondary to UTI Influenza A Possible pneumonia- ruled out Patient presented with fever, cough Urinalysis suggestive of infection; Urine culture growing E. coli Flu PCR positive Chest x-ray on admission shows patchy to opacities in right lower zone. Nodular opacity in right hilum. CT headno acute finding CT chest shows faint tree-in- bud nodularity in LLL; no consolidation. Urine culture was positive of E. coli; pansensitive. Patient was treated with IV antibiotics; switch to oral at discharge. She completed azithromycin course. Also on 5-day course of Tamiflu. PT OT evaluation was done; patient was recommended for rehab. Discussed with daughter, she prefers patient coming home with PT/OT. CM contacted. Please note the above document was generated using voice recognition software. It may contain grammatical, syntax or spelling errors. Any formal questions or concerns about the content, text or information contained within the body of this dictation should be directly addressed to the provider for clarification Total Time Total Time Spent Total Time Spent (In Minutes): 45 Total Time Includes: Examination of the Patient, Discharge Planning, Medication Reconciliation, Communication With Other Providers and Other Discharge Plan Discharge Items Patient Disposition: Home - Self-Care Reason For Visit: SEPSIS Discharge Diagnosis: Sepsis POA Likely secondary to UTI Influenza A Activity: Resume your previous activity Non-emergency contact: Primary Care Provider Call non-emergency contact if: you have any medication questions and your symptoms worsen Follow-up/Referrals: Lio Jade MD [Primary Care Provider] - 08/23/24 3:20 pm (Date & Time 08/23/2024 3:20 PM Provider: Lio Jade MD Family [facility], [facility] Diet: Regular Addtl Attending Provider Instructions: You were admitted to the hospital with UTI and flu. For the UTI, you are prescribed Augmentin to be taken twice a day for 3 days. For the flu, you are prescribed Tamiflu to be taken twice daily for 3 more days. An appointment has been set up with your primary care doctor for follow-up next week. Pending Studies at Discharge: No Stand-Alone Forms: [facility], Smoking Cessation Medications and DC Order Prescriptions: New oseltamivir [Tamiflu] 75 mg Capsule 75 mg PO BID 3 Days Qty: 6 0RF amoxicillin-pot clavulanate 875-125 mg tablet 1 tab PO BID 3 Days Qty: 6 0RF Continued atorvastatin 40 mg tablet 40 mg PO HS amlodipine 2.5 mg tablet 2.5 mg PO [facility] clopidogrel 75 mg tablet 75 mg PO QAM metoprolol tartrate 50 mg tablet 50 mg PO [facility] hydralazine 50 mg tablet 50 mg PO TID Rx Instructions: MORNING,NOON AND BEFORE BED lisinopril 20 mg Tablet 20 mg PO BID metformin 500 mg tablet extended release 24 hr 1,000 mg PO [facility] Discharge Orders: Discharge Order (Routine); Ordered 08/17/24 Ordered By: Joe Camp Admission Data Admit Date/Time: 08/15/24 03:20 Attending Provider: Joe Camp Admit Provider: Miguel Ángel Andrea Primary Care Provider: Lio Jade Other Providers: Miguel Ángel Andrea; [facility] Fax
[2024-08-17] MEDS: cefTRIAXone SODIUM 2,000 MG/50 ML BAG IV SCH (14:02)
[2024-08-17 14:10] VITALS: BP 122/74
== END 2024-08-17 15:14 | disposition home health service (06) | DRG 872 ==
LOC: ED 01:17 → EDINP 03:20 → 2N 05:48